=== PATIENT | female | born 1975 | race Caucasian/White ===

== ENCOUNTER → 2020-11-17 | Day surgery (SDC) | payer OTHER ==
[2020-11-17 16:01] VITALS: BP 131/91; TEMP 98.6
== END ==
LOC: CSHULT 12:05
PROVIDERS: ATTEND Internal Medicine Gastroenterology
DX: R18.8 Other ascites (principal)
CPT/HCPCS: 49083

== ENCOUNTER → 2020-11-21 | Day surgery (SDC) | payer OTHER ==
[~2020-11-21] MED LIST: Albumin 25% 100 ML ONE; Ondansetron PF 4 MG/2 ML Vial ONE; Sodium Bicarbonate 2.5 MEQ/5 ML VIAL ONE
[2020-11-21 14:33] VITALS: BP 133/77; TEMP 98
== END ==
LOC: CSHULT 12:35
PROVIDERS: ATTEND Internal Medicine Gastroenterology
DX: R18.8 Other ascites (principal)
CPT/HCPCS: 49083; J2405; P9047

== ENCOUNTER 2020-11-23 21:16 | Inpatient (IN) | payer OTHER ==
[2020-11-23 21:58] LABS: Hemoglobin 12.2 g/dL (12.0-15.5); Mean Corpuscular HGB CONC 33.7 g/dL (32.0-36.0); Mean Corpuscular Hemoglobin 30.8 pg (27.0-33.0); Mean Corpuscular Volume 91.4 fl (81.6-98.3); Platelet Count 70 10x3/uL (150-450); RBC Distribution Width 21.3 % (11.5-14.5); Red Blood Cell (RBC) Count 3.96 10x6/uL (3.90-5.03); White Blood Cell (WBC) Count 13.2 10x3/uL (3.5-10.5)
[2020-11-23 22:08] LABS: BHCG - Serum Negative (NEGATIVE); Pregs Control Background? CLEAR/WHITE (CLR/WHITE); Pregs Control Bar Appear? YES (CONTROL BAR)
[2020-11-23 22:14] LABS: ALT (SGPT) 51 U/L (8-55); AST (SGOT) 113 U/L (5-34); Acetaminophen Less than 6.0 mcg/mL (10.0-30.0); Alcohol Less than 10 mg/dL (Less than 10); Alkaline Phosphatase 273 U/L (40-110); Anion Gap 17 mmol/L (10-20); BUN (Urea Nitrogen) 25 mg/dL (7.0-18.7); Bilirubin, Total 4.5 mg/dL (0.2-1.2); Calc. Creatinine Clearance 0 mL/min (70-130); Calcium 8.4 mg/dL (7.8-10.44); Carbon Dioxide 21 mmol/L (22-29); Chloride 100 mmol/L (98-107); Globulin 3.5 g/dL (2.4-3.5); Glucose 110 mg/dL (70-105); Lipase 449 U/L (8-78); Potassium 4.1 mmol/L (3.5-5.1); Protein, Total 6.5 g/dL (6.0-8.3); Salicylate Less than 8.0 mg/dL (15.0-30.0); Sodium 134 mmol/L (136-145)
[2020-11-23 22:15] LABS: INR-International Normal Ratio 1.1; Prothrombin Time 11.9 sec (9.5-12.1)
[2020-11-23 22:26] LABS: Band 10 % (5-11); Lymphocytes 3 % (21-51); Reactive Lymphocytes 4 % (0-10)
[2020-11-23 22:27] LABS: Monocytes 8 % (0-10); Neutrophil 75 % (42-75)
[2020-11-23 22:29] LABS: Anisocytosis MODERATE=16-30 cells (100X) (0-5/hpf); Macrocytosis SLIGHT = 6-15 cells (100X) (0-5/hpf); Microcytosis SLIGHT = 6-15 cells (100X) (0-5/hpf); Poikilocytosis SLIGHT = 6-15 cells (100X) (0-5/hpf)
[2020-11-23 22:33] LABS: Large Platelets SLIGHT; Platelet Morphology Comment Appears Decreased
[2020-11-23 22:34] LABS: CKMB 2.4 ng/mL (0-6.6); Target Cells SLIGHT = 2-5 cells (100X) (0-1/hpf)
[2020-11-23 22:35] LABS: MDiff Complete? YES; Manual Diff?? YES
[2020-11-23] MEDS ORDERED: Cefepime 2 GM VIAL ONE (22:41)
[2020-11-23] MEDS ORDERED: diphenhydrAMINE 50 MG/ML VIAL ONE (22:56)
[2020-11-24] MEDS ORDERED: diphenhydrAMINE 50 MG/ML VIAL ONE ×3 (00:08→00:52)
[2020-11-24 01:15] LABS: Lactic Acid 2.4 mmol/L (0.5-2.2)
[2020-11-24] MEDS ORDERED: Acetaminophen 650 MG Suppository PR PRN (01:33)
[2020-11-24] MEDS ORDERED: Ondansetron PF 4 MG/2 ML Vial IVP PRN (01:33)
[2020-11-24] MEDS ORDERED: Dextrose 50% Abboject 50 ML SYRINGE SLOW IVP PRN (01:43)
[2020-11-24] MEDS ORDERED: Dextrose 5% in Water 1,000 ML IV PRN (01:43)
[2020-11-24] MEDS ORDERED: Dextrose 5 % And 0.9 % NaCl 1,000 ML IV SCH (01:45)
[2020-11-24] MEDS ORDERED: Albumin 25% 25 GM/100 ML BOT IVPB SCH (01:52)
[2020-11-24 02:05] LABS: Lactic Acid 3.6 mmol/L (0.5-2.2)
[2020-11-24] MEDS ORDERED: Dextrose 5% in Water 1,000 ML ONE (03:15)
[2020-11-24 03:32] VITALS: BMI 24.4
[2020-11-24 04:43] LABS: Lactic Acid 2.5 mmol/L (0.5-2.2)
[2020-11-24 04:49] LABS: ALT (SGPT) 49 U/L (8-55); AST (SGOT) 107 U/L (5-34); Albumin 2.8 g/dL (3.5-5.0); Alkaline Phosphatase 251 U/L (40-110); Anion Gap 20 mmol/L (10-20); BUN (Urea Nitrogen) 31 mg/dL (7.0-18.7); Bilirubin, Total 4.3 mg/dL (0.2-1.2); Calc. Creatinine Clearance 15 mL/min (70-130); Calcium 8.3 mg/dL (7.8-10.44); Carbon Dioxide 16 mmol/L (22-29); Chloride 102 mmol/L (98-107); Globulin 3.3 g/dL (2.4-3.5); Glucose 140 mg/dL (70-105); Lipase 372 U/L (8-78); Potassium 4.1 mmol/L (3.5-5.1); Protein, Total 6.1 g/dL (6.0-8.3); Sodium 134 mmol/L (136-145)
[2020-11-24 05:05] LABS: CKMB 2.7 ng/mL (0-6.6)
[2020-11-24 05:26] LABS: #Basophils 0.1 10x3/uL (0.0-0.2); #Eosinphils 0.1 10x3/uL (0.0-0.5); #Monocytes 0.9 10x3/uL (0.0-1.1); %Basophils 0.7 % (0.0-2.0); %Eosinophils 0.4 % (0.0-6.0); %Lymphocytes 3.1 % (18.0-47.0); %Monocytes 6.8 % (0.0-10.0); Hemoglobin 11.5 g/dL (12.0-15.5); Mean Corpuscular HGB CONC 33.3 g/dL (32.0-36.0); Mean Corpuscular Hemoglobin 30.4 pg (27.0-33.0); Mean Corpuscular Volume 91.3 fl (81.6-98.3); Platelet Count 81 10x3/uL (150-450); RBC Distribution Width 21.8 % (11.5-14.5); Red Blood Cell (RBC) Count 3.78 10x6/uL (3.90-5.03); White Blood Cell (WBC) Count 12.7 10x3/uL (3.5-10.5)
[2020-11-24] MEDS: Levothyroxine Sodium 75 MCG TAB PO SCH (07:30)
[2020-11-24] MEDS ORDERED: VITAMIN A 8000 UNIT PO SCH (09:00)
[2020-11-24] MEDS ORDERED: RIFAXIMIN 200 MG PO SCH (09:00)
[2020-11-24] MEDS ORDERED: Lidocaine 1% PF 5 ML VIAL ONE (09:46)
[2020-11-24] MEDS ORDERED: Sodium Bicarbonate 2.5 MEQ/5 ML VIAL ONE (09:47)
[2020-11-24] MEDS: Sevelamer Carbonate 800 MG TAB PO SCH ×3 (09:56→16:44)
[2020-11-24] MEDS: Cyanocobalamin (Vitamin B-12) 1,000 MCG TAB PO SCH (09:56)
[2020-11-24] MEDS: Ursodiol 300 MG CAP PO SCH ×2 (09:56→21:54)
[2020-11-24] MEDS: Folic Acid 1 MG TAB PO SCH (09:56)
[2020-11-24] MEDS: Pantoprazole 40 MG VIAL IVP SCH (09:56)
[2020-11-24] MEDS: Propranolol 10 MG TAB PER TUBE SCH ×2 (09:56→21:54)
[2020-11-24 12:08] LABS: Actual Bicarbonate (HCO3a) 16.5 mEq/L (22-28); Base Excess (BEa) -5.9 mEq/L (-2.0 to +3.0); CO2 Tension 23.8 mmHg (35.0-45.0); Calcium, Ionized (arterial) 1.09 mmol/L (1.12-1.30); Carboxyhemoglobin (COHb) 0.2 gm% (0.0-3.0); Hemoglobin (Hb) 10.7 g/dL (12.0-16.0); O2 Tension (PaO2), arterial 94.8 mmHg (80.0-100.0); Potassium - ABG Lab 3.8 mmol/L (3.70-5.30); Puncture Site LRA; pH, Arterial 7.46 (7.35-7.45)
[2020-11-24 13:11] LABS: SARS-CoV-2 PCR by NAA Not Detected (NotDetected)
[2020-11-24 16:48] LABS: BF Color Yellow; Body Fluid Source Ascites Body Fluid; Clarity Hazy (Clear); Tube # EDTA
[2020-11-24] MEDS: Cefepime 1 GM in Sodium Chloride 0.9% 100 ML IVPB SCH (21:53)
[2020-11-25] MEDS: Levothyroxine Sodium 75 MCG TAB PO SCH (05:28)
[2020-11-25 06:48] LABS: Mean Corpuscular HGB CONC 32.8 g/dL (32.0-36.0); Mean Corpuscular Hemoglobin 30.9 pg (27.0-33.0); Mean Corpuscular Volume 94.1 fl (81.6-98.3); Mean Platelet Volume 12.3 fl (7.4-10.4); Platelet Count 76 10x3/uL (150-450); RBC Distribution Width 21.8 % (11.5-14.5); Red Blood Cell (RBC) Count 3.56 10x6/uL (3.90-5.03); White Blood Cell (WBC) Count 13.7 10x3/uL (3.5-10.5)
[2020-11-25 07:06] LABS: ALT (SGPT) 46 U/L (8-55); AST (SGOT) 106 U/L (5-34); Albumin 2.8 g/dL (3.5-5.0); Alkaline Phosphatase 193 U/L (40-110); Anion Gap 19 mmol/L (10-20); BUN (Urea Nitrogen) 49 mg/dL (7.0-18.7); Bilirubin, Total 5.4 mg/dL (0.2-1.2); Calc. Creatinine Clearance 10 mL/min (70-130); Calcium 8.6 mg/dL (7.8-10.44); Carbon Dioxide 17 mmol/L (22-29); Chloride 107 mmol/L (98-107); Glucose 77 mg/dL (70-105); Potassium 4.1 mmol/L (3.5-5.1); Protein, Total 5.8 g/dL (6.0-8.3); Sodium 139 mmol/L (136-145)
[2020-11-25] MEDS ORDERED: Loratadine 10 MG TAB PO PRN (07:31)
[2020-11-25] MEDS ORDERED: Ondansetron ODT 4 MG TAB PO PRN (07:31)
[2020-11-25] MEDS ORDERED: Sodium Chloride 0.65% Nasal 44 ML BOT EA NARE PRN (07:31)
[2020-11-25] MEDS ORDERED: Cepastat Lozenges 1 LOZ PO PRN (07:31)
[2020-11-25] MEDS ORDERED: Acetaminophen 500 MG TAB PO PRN (07:31)
[2020-11-25] MEDS ORDERED: hydrALAZINE 20 MG/ML VIAL SLOW IVP PRN (07:31)
[2020-11-25] MEDS ORDERED: Calcium Carbonate 500 MG ChewTAB PO PRN (07:31)
[2020-11-25] MEDS ORDERED: Senokot S 8.6-50 MG TAB PO PRN (07:31)
[2020-11-25] MEDS ORDERED: HYDROcodone/Acetaminophen 5/325 mg Tablet PO PRN (07:31)
[2020-11-25] MEDS ORDERED: GUAIFENESIN SF SOLN 200 MG/10 ML UDCUP PO PRN (07:31)
[2020-11-25] MEDS ORDERED: Midodrine HCl 5 MG TAB PO SCH (09:00)
[2020-11-25] MEDS: Pantoprazole 40 MG VIAL IVP SCH (09:33)
[2020-11-25] MEDS: Ferrous Sulfate 325 MG TAB PO SCH (09:33)
[2020-11-25] MEDS: Folic Acid 1 MG TAB PO SCH (09:34)
[2020-11-25] MEDS: Propranolol 10 MG TAB PER TUBE SCH ×2 (09:34→21:23)
[2020-11-25] MEDS: Ursodiol 300 MG CAP PO SCH ×2 (09:34→21:24)
[2020-11-25] MEDS: Sevelamer Carbonate 800 MG TAB PO SCH ×3 (09:34→18:10)
[2020-11-25] MEDS: Cyanocobalamin (Vitamin B-12) 1,000 MCG TAB PO SCH (09:34)
[2020-11-25] MEDS: hydrOXYzine 25 MG TAB PO PRN (18:10)
[2020-11-25] MEDS: Cefepime 1 GM in Sodium Chloride 0.9% 100 ML IVPB SCH (21:22)
[2020-11-25] MEDS ORDERED: diphenhydrAMINE 25 MG CAP PO PRN (21:34)
[2020-11-26] MEDS ORDERED: diphenhydrAMINE 12.5 MG/5 ML UDCUP PO PRN (00:15)
[2020-11-26] MEDS: Cholestyramine/Aspartame 4 gm Packet PO SCH ×2 (01:49→10:00)
[2020-11-26 05:47] LABS: Anion Gap 19 mmol/L (10-20); Globulin 2.8 g/dL (2.4-3.5)
[2020-11-26 05:50] LABS: #Basophils 0.1 10x3/uL (0.0-0.2); #Eosinphils 0.3 10x3/uL (0.0-0.5); #Monocytes 0.8 10x3/uL (0.0-1.1); #Neutrophils 9.5 10x3/uL (1.5-8.4); %Basophils 0.9 % (0.0-2.0); %Eosinophils 2.3 % (0.0-6.0); %Lymphocytes 5.3 % (18.0-47.0); %Monocytes 6.7 % (0.0-10.0); Hemoglobin 10.5 g/dL (12.0-15.5); Mean Corpuscular HGB CONC 33.1 g/dL (32.0-36.0); Mean Corpuscular Hemoglobin 31.4 pg (27.0-33.0); Mean Corpuscular Volume 94.9 fl (81.6-98.3); Platelet Count 88 10x3/uL (150-450); RBC Distribution Width 21.3 % (11.5-14.5); Red Blood Cell (RBC) Count 3.34 10x6/uL (3.90-5.03); White Blood Cell (WBC) Count 11.9 10x3/uL (3.5-10.5)
[2020-11-26 05:51] LABS: ALT (SGPT) 43 U/L (8-55); AST (SGOT) 82 U/L (5-34); Albumin 2.4 g/dL (3.5-5.0); Alkaline Phosphatase 186 U/L (40-110); BUN (Urea Nitrogen) 61 mg/dL (7.0-18.7); Bilirubin, Total 4.9 mg/dL (0.2-1.2); Calc. Creatinine Clearance 9 mL/min (70-130); Calcium 7.3 mg/dL (7.8-10.44); Carbon Dioxide 11 mmol/L (22-29); Chloride 104 mmol/L (98-107); Glucose 118 mg/dL (70-105); Potassium 5.1 mmol/L (3.5-5.1); Protein, Total 5.2 g/dL (6.0-8.3); Sodium 129 mmol/L (136-145)
[2020-11-26] MEDS: Levothyroxine Sodium 75 MCG TAB PO SCH (07:02)
[2020-11-26] MEDS: hydrOXYzine 25 MG TAB PO PRN (07:02)
[2020-11-26] MEDS: Sevelamer Carbonate 800 MG TAB PO SCH ×3 (08:00→18:03)
[2020-11-26] MEDS: Ursodiol 300 MG CAP PO SCH (09:00)
[2020-11-26] MEDS: Propranolol 10 MG TAB PER TUBE SCH (09:00)
[2020-11-26] MEDS: Folic Acid 1 MG TAB PO SCH (15:43)
[2020-11-26] MEDS: Ferrous Sulfate 325 MG TAB PO SCH (15:43)
[2020-11-26] MEDS: Cyanocobalamin (Vitamin B-12) 1,000 MCG TAB PO SCH (15:43)
[2020-11-26 18:22] VITALS: BP 109/76; TEMP 97.7
== END 2020-11-26 20:00 | disposition home or self-care (01) | DRG 441 ==
LOC: CSHERS 21:16 → CSHTELE 11-24 01:33 → UNDOADMIN 11-24 02:34
PROVIDERS: ADMIT Student in an Organized Health Care Education/Training Program; ATTEND Internal Medicine
PROC: 0W9G3ZZ Drainage of Peritoneal Cavity, Percutaneous Approach (ICD-10-PCS; principal; 2020-11-24)
PROC: 5A1D70Z Performance of Urinary Filtration, Intermittent, Less than 6 Hours Per Day (ICD-10-PCS; 2020-11-26)
DX: K72.00 Acute and subacute hepatic failure without coma (principal); K76.7 Hepatorenal syndrome; N18.6 End stage renal disease; E87.2 Acidosis; E72.20 Disorder of urea cycle metabolism, unspecified; R18.8 Other ascites; I12.0 Hypertensive chronic kidney disease with stage 5 chronic kidney disease or end stage renal disease; K75.4 Autoimmune hepatitis; Z20.822 Contact with and (suspected) exposure to COVID-19; D63.1 Anemia in chronic kidney disease; K74.69 Other cirrhosis of liver; D69.6 Thrombocytopenia, unspecified; R77.8 Other specified abnormalities of plasma proteins; E83.39 Other disorders of phosphorus metabolism; Z91.14 Patient's other noncompliance with medication regimen; Z99.2 Dependence on renal dialysis; I95.9 Hypotension, unspecified; Z79.891 Long term (current) use of opiate analgesic; Z79.899 Other long term (current) drug therapy; Z78.1 Physical restraint status
CPT/HCPCS: 36415; 36416; 36600; 49083; 70450; 71045; 80053; 80307; 82042; 82140; 82553; 82805; 83605; 83690; 84484; 84703; 85025; 85027; 85610; 87635; 89051; 90935; 93005; 94760; 96365; 96367; 96375; 96376; C9113; G0257; J0692; J1200; J3370; J3490; J7042; J7070; P9047; Q0163; U0003; U0005

== ENCOUNTER 2020-11-28 12:54 | Day surgery (SDC) | payer OTHER ==
[2020-11-28] MEDS ORDERED: Lidocaine 1% PF 5 ML VIAL ONE (13:23)
[2020-11-28] MEDS ORDERED: Albumin 25% 100 ML ONE (13:23)
[2020-11-28] MEDS ORDERED: Ondansetron PF 4 MG/2 ML Vial ONE (13:23)
[2020-11-28] MEDS ORDERED: Sodium Bicarbonate 2.5 MEQ/5 ML VIAL ONE (13:23)
[2020-11-28 14:30] VITALS: BMI 18.5
[2020-11-28 14:36] VITALS: BP 127/92; TEMP 97.9
[2020-11-28] MEDS ORDERED: Prevnar 13-Val Conj/PF 0.5 ML SYRINGE IM ONE (14:45)
[2020-11-28] MEDS ORDERED: FLU VACC QS2020-21(6MOS UP)/PF 60 MCG/0.5 ML SYRINGE IM ONE (14:45)
[2020-11-28 16:14] LABS: Body Fluid Source Ascites Body Fluid; Tube # 1
[2020-11-28 16:15] LABS: BF Color Yellow; Clarity Cloudy/Turbid (Clear)
[2020-11-28 20:52] LABS: Fluid, Glucose 129 mg/dL (Not Available); Fluid, Protein Less than 1.0 g/dL (Not Available)
== END 2020-11-28 14:30 | disposition home or self-care (01) ==
LOC: CSHULT 12:54
PROVIDERS: ATTEND Internal Medicine Gastroenterology
DX: R18.8 Other ascites (principal)
CPT/HCPCS: 49083; 82945; 84157; 89051; 90471; 90662; G0008; J2405; P9047

== ENCOUNTER → 2020-12-01 | Day surgery (SDC) | payer OTHER ==
[~2020-12-01] MED LIST changes: +Lidocaine 1% PF 5 ML VIAL ONE
[2020-12-01 11:09] LABS: Hemoglobin 12.3 g/dL (12.0-15.5); Mean Corpuscular HGB CONC 33.8 g/dL (32.0-36.0); Mean Corpuscular Hemoglobin 30.9 pg (27.0-33.0); Mean Corpuscular Volume 91.5 fl (81.6-98.3); Platelet Count 103 10x3/uL (150-450); RBC Distribution Width 21.8 % (11.5-14.5); Red Blood Cell (RBC) Count 3.98 10x6/uL (3.90-5.03); White Blood Cell (WBC) Count 15.2 10x3/uL (3.5-10.5)
[2020-12-01 11:11] LABS: MDiff Complete? YES
[2020-12-01 11:18] LABS: ALT (SGPT) 67 U/L (8-55); AST (SGOT) 127 U/L (5-34); Albumin 2.9 g/dL (3.5-5.0); Alkaline Phosphatase 250 U/L (40-110); Anion Gap 18 mmol/L (10-20); BUN (Urea Nitrogen) 32 mg/dL (7.0-18.7); Bilirubin, Total 5.4 mg/dL (0.2-1.2); Calc. Creatinine Clearance 0 mL/min (70-130); Calcium 8.6 mg/dL (7.8-10.44); Carbon Dioxide 19 mmol/L (22-29); Chloride 98 mmol/L (98-107); Globulin 3.6 g/dL (2.4-3.5); Glucose 102 mg/dL (70-105); Potassium 5.6 mmol/L (3.5-5.1); Protein, Total 6.5 g/dL (6.0-8.3); Sodium 129 mmol/L (136-145)
[2020-12-01 11:32] LABS: Band 1 % (5-11); Eosinophils 1 % (0-10); Lymphocytes 15 % (21-51); Monocytes 9 % (0-10); Neutrophil 74 % (42-75)
[2020-12-01 11:33] LABS: Platelet Morphology Comment Appears Decreased; Target Cells SLIGHT = 2-5 cells (100X) (0-1/hpf)
== END ==
LOC: CSHULT 10:16
PROVIDERS: ATTEND Internal Medicine Gastroenterology
DX: R18.8 Other ascites (principal)
CPT/HCPCS: 49083; 80053; 85025; J2405; P9047

== ENCOUNTER → 2020-12-05 | Day surgery (SDC) | payer OTHER ==
[2020-12-05 15:28] VITALS: BMI 28.3
== END ==
LOC: CSHULT 13:09
PROVIDERS: ATTEND Internal Medicine Gastroenterology
DX: R18.8 Other ascites (principal)
CPT/HCPCS: 49083; J2405; P9047

== ENCOUNTER → 2020-12-08 | Day surgery (SDC) | payer OTHER ==
[~2020-12-08] MED LIST changes: -Lidocaine 1% PF 5 ML VIAL ONE
[2020-12-08 13:11] VITALS: BMI 18.5
[2020-12-08 14:05] LABS: Hemoglobin 11.5 g/dL (12.0-15.5); Mean Corpuscular Hemoglobin 32.8 pg (27.0-33.0); Mean Corpuscular Volume 93.7 fl (81.6-98.3); Platelet Count 138 10x3/uL (150-450); RBC Distribution Width 23.9 % (11.5-14.5); Red Blood Cell (RBC) Count 3.51 10x6/uL (3.90-5.03)
[2020-12-08 14:10] VITALS: BP 106/71; TEMP 98
[2020-12-08 14:15] LABS: ALT (SGPT) 78 U/L (8-55); AST (SGOT) 138 U/L (5-34); Albumin 2.8 g/dL (3.5-5.0); Alkaline Phosphatase 303 U/L (40-110); Anion Gap 19 mmol/L (10-20); BUN (Urea Nitrogen) 35 mg/dL (7.0-18.7); Bilirubin, Total 6.8 mg/dL (0.2-1.2); Calc. Creatinine Clearance 9 mL/min (70-130); Calcium 8.4 mg/dL (7.8-10.44); Carbon Dioxide 21 mmol/L (22-29); Chloride 99 mmol/L (98-107); Globulin 3.8 g/dL (2.4-3.5); Glucose 94 mg/dL (70-105); Potassium 5.2 mmol/L (3.5-5.1); Protein, Total 6.6 g/dL (6.0-8.3); Sodium 134 mmol/L (136-145)
[2020-12-08 14:24] LABS: INR-International Normal Ratio 1.1; Prothrombin Time 11.7 sec (9.5-12.1)
[2020-12-08 14:27] LABS: Band 4 % (5-11); Eosinophils 2 % (0-10); Lymphocytes 8 % (21-51); Monocytes 3 % (0-10); Reactive Lymphocytes 1 % (0-10)
[2020-12-08 14:29] LABS: Neutrophil 82 % (42-75)
[2020-12-08 14:32] LABS: Anisocytosis SLIGHT = 6-15 cells (100X) (0-5/hpf); Macrocytosis SLIGHT = 6-15 cells (100X) (0-5/hpf); Microcytosis SLIGHT = 6-15 cells (100X) (0-5/hpf); Platelet Morphology Comment Appears Increased; Polychromasia SLIGHT = 2-3 cells (100X) (0-2/hpf); Target Cells MODERATE= 6-15 cells (100X) (0-1/hpf); Tear Drops SLIGHT = 2-5 cells (100X) (0-1/hpf)
== END ==
LOC: CSHULT 12:53
PROVIDERS: ATTEND Internal Medicine Gastroenterology
DX: R18.8 Other ascites (principal)
CPT/HCPCS: 49083; 80053; 85025; 85610; J2405; P9047

== ENCOUNTER 2020-12-12 13:06 | Day surgery (SDC) | payer OTHER ==
[2020-12-12 13:17] VITALS: BMI 18.5
[2020-12-12] MEDS ORDERED: Albumin 25% 100 ML ONE (13:25)
[2020-12-12] MEDS ORDERED: Sodium Bicarbonate 2.5 MEQ/5 ML VIAL ONE (13:26)
[2020-12-12] MEDS ORDERED: Ondansetron PF 4 MG/2 ML Vial ONE (13:26)
[2020-12-12] MEDS ORDERED: Sterile Water 0 ML ONE (13:26)
[2020-12-12 13:56] VITALS: BP 114/68; TEMP 97.8
== END 2020-12-12 14:45 | disposition home or self-care (01) ==
LOC: CSHULT 13:06
PROVIDERS: ATTEND Internal Medicine Gastroenterology
DX: R18.8 Other ascites (principal)
CPT/HCPCS: 49083; J2405; P9047

== ENCOUNTER 2020-12-14 16:08 | Inpatient (IN) | payer OTHER ==
[2020-12-14 16:57] LABS: Hemoglobin 11.7 g/dL (12.0-15.5); Mean Corpuscular HGB CONC 34.7 g/dL (32.0-36.0); Mean Corpuscular Hemoglobin 32.3 pg (27.0-33.0); Mean Corpuscular Volume 93.1 fl (81.6-98.3); Mean Platelet Volume 11.3 fl (7.4-10.4); Platelet Count 130 10x3/uL (150-450); RBC Distribution Width 22.5 % (11.5-14.5); Red Blood Cell (RBC) Count 3.62 10x6/uL (3.90-5.03); White Blood Cell (WBC) Count 11.6 10x3/uL (3.5-10.5)
[2020-12-14 17:05] LABS: ALT (SGPT) 52 U/L (8-55); AST (SGOT) 93 U/L (5-34); Albumin 2.8 g/dL (3.5-5.0); Alkaline Phosphatase 256 U/L (40-110); Anion Gap 27 mmol/L (10-20); BUN (Urea Nitrogen) 39 mg/dL (7.0-18.7); Bilirubin, Total 7.2 mg/dL (0.2-1.2); Calc. Creatinine Clearance 0 mL/min (70-130); Calcium 8.8 mg/dL (7.8-10.44); Carbon Dioxide 19 mmol/L (22-29); Chloride 96 mmol/L (98-107); Globulin 2.9 g/dL (2.4-3.5); Glucose 102 mg/dL (70-105); Potassium 5.2 mmol/L (3.5-5.1); Protein, Total 5.7 g/dL (6.0-8.3); Sodium 137 mmol/L (136-145)
[2020-12-14 17:13] LABS: INR-International Normal Ratio 1.2; PTT 26.7 sec (22.0-33.0)
[2020-12-14 17:19] LABS: #Basophils 0.1 10x3/uL (0.0-0.2); #Eosinphils 0.2 10x3/uL (0.0-0.5); #Monocytes 0.9 10x3/uL (0.0-1.1); #Neutrophils 9.5 10x3/uL (1.5-8.4); %Eosinophils 1.4 % (0.0-6.0); %Lymphocytes 4.8 % (18.0-47.0); %Monocytes 7.5 % (0.0-10.0); %Neutrophils 81.7 % (40.0-75.0)
[2020-12-14 17:21] LABS: Platelet Morphology Comment Appears Decreased
[2020-12-14 17:23] LABS: Anisocytosis SLIGHT = 6-15 cells (100X) (0-5/hpf); Basophilic Stippling SLIGHT = 1-2 cells (100X) (None Seen); Macrocytosis SLIGHT = 6-15 cells (100X) (0-5/hpf); Target Cells MODERATE= 6-15 cells (100X) (0-1/hpf)
[2020-12-14 17:24] LABS: Polychromasia SLIGHT = 2-3 cells (100X) (0-2/hpf)
[2020-12-14] MEDS ORDERED: Lidocaine Viscous Sol 2% 15 ml UD Cup ONE (18:23)
[2020-12-14 18:39] LABS: Magnesium 2.4 mg/dL (1.6-2.6); Phosphorus 8.9 mg/dL (2.3-4.7)
[2020-12-14] MEDS ORDERED: Rifaximin 550 MG TAB PO SCH (18:45)
[2020-12-14] MEDS ORDERED: Octreotide Acetate 1,250 MCG in Sodium Chloride 0.9% 250 ML 250 ML IVPB SCH (19:45)
[2020-12-14] MEDS ORDERED: Octreotide Acetate 50 MCG/ML AMP SLOW IVP SCH (21:00)
[2020-12-14] MEDS ORDERED: Pantoprazole 40 MG VIAL IVP SCH (21:00)
[2020-12-14] MEDS ORDERED: Pantoprazole 40 MG VIAL ONE (22:03)
[2020-12-14] MEDS ORDERED: Octreotide Acetate 100 MCG/ML VIAL ONE (22:22)
[2020-12-14] MEDS ORDERED: Octreotide Acetate 50 MCG/ML AMP ONE (22:23)
[2020-12-14] MEDS: cefTRIAXone\\ROCEPHIN 1 GM in Sodium Chloride 0.9% 100 ML IVPB SCH (22:56)
[2020-12-14] MEDS: Pantoprazole 80 MG in Sodium Chloride 0.9% 100 ML IVP SCH (23:23)
[2020-12-15] MEDS: Octreotide Acetate 1,250 MCG in Sodium Chloride 0.9% 250 ML 250 ML IVPB SCH (00:14)
[2020-12-15 00:50] VITALS: BMI 18.5
[2020-12-15 04:42] LABS: #Basophils 0.1 10x3/uL (0.0-0.2); #Eosinphils 0.1 10x3/uL (0.0-0.5); %Basophils 0.9 % (0.0-2.0); %Eosinophils 0.7 % (0.0-6.0); %Lymphocytes 7.5 % (18.0-47.0); %Monocytes 8.3 % (0.0-10.0); Hemoglobin 11.3 g/dL (12.0-15.5); Mean Corpuscular HGB CONC 34.8 g/dL (32.0-36.0); Mean Corpuscular Hemoglobin 32.4 pg (27.0-33.0); Mean Corpuscular Volume 93.1 fl (81.6-98.3); Mean Platelet Volume 11.4 fl (7.4-10.4); Platelet Count 129 10x3/uL (150-450); RBC Distribution Width 22.6 % (11.5-14.5); Red Blood Cell (RBC) Count 3.49 10x6/uL (3.90-5.03); White Blood Cell (WBC) Count 12.5 10x3/uL (3.5-10.5)
[2020-12-15 04:59] LABS: Anion Gap 29 mmol/L (10-20); BUN (Urea Nitrogen) 44 mg/dL (7.0-18.7); Calc. Creatinine Clearance 7 mL/min (70-130); Calcium 9.4 mg/dL (7.8-10.44); Carbon Dioxide 16 mmol/L (22-29); Chloride 96 mmol/L (98-107); Glucose 77 mg/dL (70-105); Potassium 5.9 mmol/L (3.5-5.1); Sodium 135 mmol/L (136-145)
[2020-12-15] MEDS ORDERED: Insulin Regular 300 UNITS/3 ML VIAL IVP SCH (06:00)
[2020-12-15] MEDS ORDERED: Dextrose 50% Abboject 50 ML SYRINGE SLOW IVP SCH (06:00)
[2020-12-15] MEDS ORDERED: Calcium Gluconate 4.6 MEQ in Sodium Chloride 0.9% 100 ML IVPB SCH (06:30)
[2020-12-15] MEDS: Rifaximin 550 MG TAB PER TUBE SCH ×2 (08:52→20:37)
[2020-12-15 09:17] LABS: ALT (SGPT) 48 U/L (8-55); AST (SGOT) 96 U/L (5-34); Albumin 2.6 g/dL (3.5-5.0); Alkaline Phosphatase 236 U/L (40-110); Bilirubin, Direct 5.6 mg/dL (0.1-0.3); Bilirubin, Total 7.4 mg/dL (0.2-1.2); Protein, Total 5.8 g/dL (6.0-8.3)
[2020-12-15] MEDS: Pantoprazole 80 MG in Sodium Chloride 0.9% 100 ML IVP SCH ×2 (09:23→20:37)
[2020-12-15 10:35] LABS: ALT (SGPT) 43 U/L (8-55); AST (SGOT) 86 U/L (5-34); Albumin 2.4 g/dL (3.5-5.0); Alkaline Phosphatase 219 U/L (40-110); Anion Gap 27 mmol/L (10-20); BUN (Urea Nitrogen) 47 mg/dL (7.0-18.7); Bilirubin, Total 7.6 mg/dL (0.2-1.2); Calc. Creatinine Clearance 6 mL/min (70-130); Calcium 9.4 mg/dL (7.8-10.44); Carbon Dioxide 18 mmol/L (22-29); Chloride 95 mmol/L (98-107); Glucose 97 mg/dL (70-105); Potassium 4.6 mmol/L (3.5-5.1); Protein, Total 5.4 g/dL (6.0-8.3); Sodium 135 mmol/L (136-145)
[2020-12-15] MEDS: Ondansetron PF 4 MG/2 ML Vial IVP PRN (12:37)
[2020-12-15] MEDS: Sevelamer Carbonate 800 MG TAB PO SCH ×2 (15:10→16:40)
[2020-12-15] MEDS: cefTRIAXone\\ROCEPHIN 1 GM in Sodium Chloride 0.9% 100 ML IVPB SCH (20:38)
[2020-12-16] MEDS ORDERED: diphenhydrAMINE 25 MG CAP PO PRN (01:18)
[2020-12-16] MEDS: Ondansetron PF 4 MG/2 ML Vial IVP PRN ×2 (01:49→09:10)
[2020-12-16] MEDS: Octreotide Acetate 1,250 MCG in Sodium Chloride 0.9% 250 ML 250 ML IVPB SCH (05:31)
[2020-12-16 07:02] LABS: Hemoglobin 10.4 g/dL (12.0-15.5); Mean Corpuscular HGB CONC 33.9 g/dL (32.0-36.0); Mean Corpuscular Hemoglobin 32.3 pg (27.0-33.0); Mean Corpuscular Volume 95.3 fl (81.6-98.3); Mean Platelet Volume 12.3 fl (7.4-10.4); Platelet Count 109 10x3/uL (150-450); RBC Distribution Width 21.7 % (11.5-14.5); Red Blood Cell (RBC) Count 3.22 10x6/uL (3.90-5.03); White Blood Cell (WBC) Count 11.4 10x3/uL (3.5-10.5)
[2020-12-16 07:32] LABS: Anion Gap 20 mmol/L (10-20)
[2020-12-16 07:45] LABS: Albumin 2.2 g/dL (3.5-5.0); BUN (Urea Nitrogen) 33 mg/dL (7.0-18.7); BUN/Creatinine Ratio 5.53; Calc. Creatinine Clearance 9 mL/min (70-130); Calcium 7.8 mg/dL (7.8-10.44); Carbon Dioxide 19 mmol/L (22-29); Chloride 99 mmol/L (98-107); Glucose 112 mg/dL (70-105); Phosphorus 6.4 mg/dL (2.3-4.7); Potassium 5.1 mmol/L (3.5-5.1); Sodium 133 mmol/L (136-145)
[2020-12-16 08:48] LABS: SARS-CoV-2 NAA Rapid Test Not Detected (NotDetected)
[2020-12-16] MEDS ORDERED: PROPOFOL 40 ML ONE (09:34)
[2020-12-16] MEDS ORDERED: Lidocaine 1% PF 5 ML VIAL ONE ×2 (09:34→13:52)
[2020-12-16] MEDS: Sevelamer Carbonate 800 MG TAB PO SCH ×3 (11:08→17:21)
[2020-12-16] MEDS: Rifaximin 550 MG TAB PER TUBE SCH ×2 (12:51→21:30)
[2020-12-16] MEDS ORDERED: Sodium Bicarbonate 2.5 MEQ/5 ML VIAL ONE (13:52)
[2020-12-16] MEDS: Morphine 2 MG/ML VIAL SLOW IVP PRN ×2 (13:59→21:30)
[2020-12-16] MEDS ORDERED: Ondansetron PF 4 MG/2 ML Vial ONE (14:40)
[2020-12-16] MEDS: cefTRIAXone\\ROCEPHIN 1 GM in Sodium Chloride 0.9% 100 ML IVPB SCH (21:30)
[2020-12-17] MEDS: Sevelamer Carbonate 800 MG TAB PO SCH ×3 (09:07→16:59)
[2020-12-17] MEDS: Rifaximin 550 MG TAB PER TUBE SCH ×2 (09:07→20:51)
[2020-12-17] MEDS: Morphine 2 MG/ML VIAL SLOW IVP PRN ×2 (11:00→19:12)
[2020-12-17] MEDS ORDERED: OCTREOTIDE ACETATE IVPB SCH (20:00)
[2020-12-17] MEDS ORDERED: SODIUM CHLORIDE 0.9% IVPB SCH (20:00)
[2020-12-17] MEDS: cefTRIAXone\\ROCEPHIN 1 GM in Sodium Chloride 0.9% 100 ML IVPB SCH (20:58)
[2020-12-17] MEDS ORDERED: Octreotide Acetate 1,250 MCG in Sodium Chloride 0.9% 250 ML 250 ML IVPB SCH (21:00)
[2020-12-18] MEDS: Morphine 2 MG/ML VIAL SLOW IVP PRN ×2 (00:43→08:50)
[2020-12-18] MEDS: Rifaximin 550 MG TAB PER TUBE SCH (08:50)
[2020-12-18] MEDS: Sevelamer Carbonate 800 MG TAB PO SCH (08:50)
[2020-12-18 09:51] VITALS: BP 91/64; TEMP 98.2
== END 2020-12-18 13:22 | disposition home or self-care (01) | DRG 368 ==
LOC: CSHERS 16:08 → CSHTELE 20:51
PROVIDERS: ADMIT Family Medicine; ATTEND Hospitalist
PROC: 5A1D70Z Performance of Urinary Filtration, Intermittent, Less than 6 Hours Per Day (ICD-10-PCS; 2020-12-15)
PROC: 06L38CZ Occlusion of Esophageal Vein with Extraluminal Device, Via Natural or Artificial Opening Endoscopic (ICD-10-PCS; principal; 2020-12-16)
PROC: 0W9G3ZZ Drainage of Peritoneal Cavity, Percutaneous Approach (ICD-10-PCS; 2020-12-16)
PROC: 5A1D70Z Performance of Urinary Filtration, Intermittent, Less than 6 Hours Per Day (ICD-10-PCS; 2020-12-17)
DX: I85.11 Secondary esophageal varices with bleeding (principal); N18.6 End stage renal disease; K76.7 Hepatorenal syndrome; K72.00 Acute and subacute hepatic failure without coma; K76.6 Portal hypertension; R18.8 Other ascites; E87.2 Acidosis; K74.60 Unspecified cirrhosis of liver; K31.89 Other diseases of stomach and duodenum; D63.8 Anemia in other chronic diseases classified elsewhere; K75.4 Autoimmune hepatitis; Z99.2 Dependence on renal dialysis; E03.9 Hypothyroidism, unspecified; Z87.891 Personal history of nicotine dependence; E87.5 Hyperkalemia; E83.39 Other disorders of phosphorus metabolism; D69.6 Thrombocytopenia, unspecified; Z20.822 Contact with and (suspected) exposure to COVID-19
CPT/HCPCS: 36415; 36416; 49083; 71045; 76705; 80048; 80053; 80069; 80076; 82140; 83735; 84100; 84443; 85025; 85027; 85610; 85730; 86850; 86900; 86901; 90935; 93005; C9113; G0257; J0696; J1815; J2001; J2270; J2354; J2405; J2704; J3490; J7050; Q0163; U0002

== ENCOUNTER 2020-12-19 13:15 | Day surgery (SDC) | payer OTHER ==
[2020-12-19] MEDS ORDERED: Albumin 25% 100 ML ONE (13:28)
[2020-12-19] MEDS ORDERED: Lidocaine 1% PF 5 ML VIAL ONE (13:29)
[2020-12-19] MEDS ORDERED: Ondansetron PF 4 MG/2 ML Vial ONE (13:29)
[2020-12-19] MEDS ORDERED: Sodium Bicarbonate 2.5 MEQ/5 ML VIAL ONE (13:29)
[2020-12-19 13:59] VITALS: BMI 18.5
[2020-12-19 14:06] VITALS: BP 116/84; TEMP 97
[2020-12-19 15:30] LABS: ALT (SGPT) 49 U/L (8-55); AST (SGOT) 108 U/L (5-34); Albumin 2.9 g/dL (3.5-5.0); Alkaline Phosphatase 223 U/L (40-110); Anion Gap 20 mmol/L (10-20); BUN (Urea Nitrogen) 58 mg/dL (7.0-18.7); Bilirubin, Direct 5.2 mg/dL (0.1-0.3); Bilirubin, Total 6.4 mg/dL (0.2-1.2); Calc. Creatinine Clearance 6 mL/min (70-130); Calcium 8.2 mg/dL (7.8-10.44); Carbon Dioxide 18 mmol/L (22-29); Chloride 95 mmol/L (98-107); Globulin 3.1 g/dL (2.4-3.5); Glucose 88 mg/dL (70-105); Potassium 4.7 mmol/L (3.5-5.1); Sodium 128 mmol/L (136-145)
[2020-12-19 15:43] LABS: INR-International Normal Ratio 1.2; PTT 32.5 sec (22.0-33.0); Prothrombin Time 13.5 sec (9.5-12.1)
== END 2020-12-19 15:25 | disposition home or self-care (01) ==
LOC: CSHULT 13:15
PROVIDERS: ATTEND Internal Medicine Gastroenterology
DX: R18.8 Other ascites (principal)
CPT/HCPCS: 49083; 80053; 80076; 85610; 85730; J2405; P9047

== ENCOUNTER → 2020-12-22 | Day surgery (SDC) | payer OTHER ==
[~2020-12-22] MED LIST changes: +Lidocaine 1% PF 5 ML VIAL ONE
== END ==
LOC: CSHULT 12:52
PROVIDERS: ATTEND Internal Medicine Gastroenterology
DX: R18.8 Other ascites (principal)
CPT/HCPCS: 49083; J2405; P9047

== ENCOUNTER → 2020-12-26 | Day surgery (SDC) | payer OTHER ==
[~2020-12-26] MED LIST changes: -Lidocaine 1% PF 5 ML VIAL ONE
[2020-12-26 15:01] LABS: INR-International Normal Ratio 1.1; Prothrombin Time 12.1 sec (9.5-12.1)
[2020-12-26 15:31] VITALS: BMI 18.5
[2020-12-26 16:18] LABS: ALT (SGPT) 94 U/L (8-55); AST (SGOT) 293 U/L (5-34); Albumin 2.6 g/dL (3.5-5.0); Alkaline Phosphatase 301 U/L (40-110); Anion Gap 27 mmol/L (10-20); BUN (Urea Nitrogen) 61 mg/dL (7.0-18.7); Bilirubin, Total 7.6 mg/dL (0.2-1.2); Calc. Creatinine Clearance 6 mL/min (70-130); Calcium 9.9 mg/dL (7.8-10.44); Carbon Dioxide 14 mmol/L (22-29); Chloride 96 mmol/L (98-107); Globulin 4.1 g/dL (2.4-3.5); Glucose 88 mg/dL (70-105); Protein, Total 6.7 g/dL (6.0-8.3); Sodium 132 mmol/L (136-145)
== END ==
LOC: CSHULT 13:04
PROVIDERS: ATTEND Internal Medicine Gastroenterology
DX: R18.8 Other ascites (principal)
CPT/HCPCS: 49083; 80053; 85610; J2405; P9047

== ENCOUNTER 2020-12-29 12:51 | Day surgery (SDC) | payer OTHER ==
[2020-12-29] MEDS ORDERED: Ondansetron PF 4 MG/2 ML Vial ONE (12:58)
[2020-12-29] MEDS ORDERED: Albumin 25% 100 ML ONE (12:58)
[2020-12-29] MEDS ORDERED: Sodium Bicarbonate 2.5 MEQ/5 ML VIAL ONE (12:59)
[2020-12-29 13:38] VITALS: BP 103/72; TEMP 97.7
== END 2020-12-29 14:30 | disposition home or self-care (01) ==
LOC: CSHULT 12:51
PROVIDERS: ATTEND Internal Medicine Gastroenterology
DX: R18.8 Other ascites (principal)
CPT/HCPCS: 49083; J2405; P9047

== ENCOUNTER → 2021-01-02 | Day surgery (SDC) | payer OTHER ==
[2021-01-02 14:09] LABS: INR-International Normal Ratio 1.2; Prothrombin Time 12.8 sec (9.5-12.1)
[2021-01-02 14:15] LABS: ALT (SGPT) 69 U/L (8-55); AST (SGOT) 174 U/L (5-34); Albumin 2.6 g/dL (3.5-5.0); Alkaline Phosphatase 330 U/L (40-110); Anion Gap 26 mmol/L (10-20); BUN (Urea Nitrogen) 51 mg/dL (7.0-18.7); Bilirubin, Total 7.1 mg/dL (0.2-1.2); Calc. Creatinine Clearance 6 mL/min (70-130); Calcium 8.2 mg/dL (7.8-10.44); Carbon Dioxide 15 mmol/L (22-29); Chloride 96 mmol/L (98-107); Globulin 3.6 g/dL (2.4-3.5); Glucose 85 mg/dL (70-105); Potassium 4.6 mmol/L (3.5-5.1); Protein, Total 6.2 g/dL (6.0-8.3); Sodium 132 mmol/L (136-145)
== END ==
LOC: CSHULT 13:07
PROVIDERS: ATTEND Internal Medicine Gastroenterology
DX: R18.8 Other ascites (principal)
CPT/HCPCS: 49083; 80053; 85610; J2405; P9047

== ENCOUNTER → 2021-01-05 | Day surgery (SDC) | payer OTHER ==
[2021-01-05 13:35] LABS: INR-International Normal Ratio 1.1; Prothrombin Time 12.2 sec (9.5-12.1)
[2021-01-05 13:38] LABS: ALT (SGPT) 63 U/L (8-55); AST (SGOT) 194 U/L (5-34); Albumin 2.5 g/dL (3.5-5.0); Alkaline Phosphatase 306 U/L (40-110); Anion Gap 20 mmol/L (10-20); BUN (Urea Nitrogen) 26 mg/dL (7.0-18.7); Bilirubin, Total 6.8 mg/dL (0.2-1.2); Calc. Creatinine Clearance 9 mL/min (70-130); Calcium 7.9 mg/dL (7.8-10.44); Carbon Dioxide 20 mmol/L (22-29); Chloride 97 mmol/L (98-107); Globulin 3.3 g/dL (2.4-3.5); Glucose 115 mg/dL (70-105); Potassium 3.3 mmol/L (3.5-5.1); Protein, Total 5.8 g/dL (6.0-8.3); Sodium 134 mmol/L (136-145)
== END ==
LOC: CSHULT 12:53
PROVIDERS: ATTEND Internal Medicine Gastroenterology
DX: R18.8 Other ascites (principal)
CPT/HCPCS: 49083; 80053; 85610; J2405; P9047

== ENCOUNTER → 2021-01-09 | Day surgery (SDC) | payer OTHER ==
[~2021-01-09] MED LIST changes: +Lidocaine 1% PF 5 ML VIAL ONE
[2021-01-09 15:02] VITALS: BMI 18.5
[2021-01-09 15:06] VITALS: BP 101/68; TEMP 97.8
[2021-01-09 15:20] LABS: INR-International Normal Ratio 1.2; Prothrombin Time 13.3 sec (9.5-12.1)
[2021-01-09 16:02] LABS: ALT (SGPT) 69 U/L (8-55); AST (SGOT) 217 U/L (5-34); Albumin 2.6 g/dL (3.5-5.0); Alkaline Phosphatase 422 U/L (40-110); Anion Gap 25 mmol/L (10-20); BUN (Urea Nitrogen) 44 mg/dL (7.0-18.7); Bilirubin, Direct 5.2 mg/dL (0.1-0.3); Bilirubin, Total 7.5 mg/dL (0.2-1.2); Calc. Creatinine Clearance 6 mL/min (70-130); Carbon Dioxide 14 mmol/L (22-29); Chloride 94 mmol/L (98-107); Globulin 4.3 g/dL (2.4-3.5); Glucose 111 mg/dL (70-105); Protein, Total 6.9 g/dL (6.0-8.3); Sodium 129 mmol/L (136-145)
== END ==
LOC: CSHULT 13:02
PROVIDERS: ATTEND Internal Medicine Gastroenterology
DX: R18.8 Other ascites (principal)
CPT/HCPCS: 49083; 80053; 80076; 85610; J2405; P9047

== ENCOUNTER 2021-01-12 13:01 | Day surgery (SDC) | payer OTHER ==
[2021-01-12 13:09] VITALS: BMI 18.5
[2021-01-12] MEDS ORDERED: Albumin 25% 100 ML ONE (13:10)
[2021-01-12] MEDS ORDERED: Ondansetron PF 4 MG/2 ML Vial ONE (13:11)
[2021-01-12] MEDS ORDERED: Sodium Bicarbonate 2.5 MEQ/5 ML VIAL ONE (13:11)
[2021-01-12 15:34] VITALS: BP 86/52; TEMP 98.7
== END 2021-01-12 14:45 | disposition home or self-care (01) ==
LOC: CSHULT 13:01
PROVIDERS: ATTEND Internal Medicine Gastroenterology
DX: R18.8 Other ascites (principal)
CPT/HCPCS: 49083; J2405; P9047

== ENCOUNTER 2021-01-16 12:57 | Day surgery (SDC) | payer OTHER ==
[2021-01-16 13:05] VITALS: BMI 18.5
[2021-01-16] MEDS ORDERED: Albumin 25% 100 ML ONE (13:06)
[2021-01-16] MEDS ORDERED: Ondansetron PF 4 MG/2 ML Vial ONE (13:06)
[2021-01-16] MEDS ORDERED: Sodium Bicarbonate 2.5 MEQ/5 ML VIAL ONE (13:06)
[2021-01-16 14:39] VITALS: BP 114/88; TEMP 97.8
[2021-01-16 14:55] LABS: INR-International Normal Ratio 1.3; Prothrombin Time 13.8 sec (9.5-12.1)
[2021-01-16 15:02] LABS: ALT (SGPT) 39 U/L (8-55); AST (SGOT) 97 U/L (5-34); Alkaline Phosphatase 282 U/L (40-110); Anion Gap 21 mmol/L (10-20); BUN (Urea Nitrogen) 35 mg/dL (7.0-18.7); Calc. Creatinine Clearance 7 mL/min (70-130); Calcium 7.8 mg/dL (7.8-10.44); Carbon Dioxide 17 mmol/L (22-29); Chloride 98 mmol/L (98-107); Globulin 2.9 g/dL (2.4-3.5); Glucose 106 mg/dL (70-105); Potassium 3.5 mmol/L (3.5-5.1); Protein, Total 5.9 g/dL (6.0-8.3); Sodium 132 mmol/L (136-145)
== END 2021-01-16 14:50 | disposition home or self-care (01) ==
LOC: CSHULT 12:57
PROVIDERS: ATTEND Internal Medicine Gastroenterology
DX: R18.8 Other ascites (principal)
CPT/HCPCS: 49083; 80053; 85610; J2405; P9047

== ENCOUNTER → 2021-01-19 | Day surgery (SDC) | payer OTHER ==
[~2021-01-19] MED LIST changes: -Lidocaine 1% PF 5 ML VIAL ONE
[2021-01-19 13:20] VITALS: BMI 18.5
== END ==
LOC: CSHULT 12:52
PROVIDERS: ATTEND Internal Medicine Gastroenterology
DX: R18.8 Other ascites (principal); Z53.9 Procedure and treatment not carried out, unspecified reason
CPT/HCPCS: 76705; J2405; P9047

== ENCOUNTER 2021-01-20 18:19 | Inpatient (IN) | payer OTHER ==
[2021-01-20 19:32] LABS: #Basophils 0.1 10x3/uL (0.0-0.2); #Monocytes 0.9 10x3/uL (0.0-1.1); %Basophils 0.7 % (0.0-2.0); %Eosinophils 0.3 % (0.0-6.0); %Lymphocytes 7.9 % (18.0-47.0); %Monocytes 7.1 % (0.0-10.0); %Neutrophils 79.4 % (40.0-75.0); Hemoglobin 10.4 g/dL (12.0-15.5); Mean Corpuscular HGB CONC 33.1 g/dL (32.0-36.0); Mean Corpuscular Volume 93.7 fl (81.6-98.3); Mean Platelet Volume 11.4 fl (7.4-10.4); Platelet Count 179 10x3/uL (150-450); RBC Distribution Width 17.4 % (11.5-14.5); Red Blood Cell (RBC) Count 3.35 10x6/uL (3.90-5.03); White Blood Cell (WBC) Count 12.6 10x3/uL (3.5-10.5)
[2021-01-20 19:50] LABS: ALT (SGPT) 56 U/L (8-55); AST (SGOT) 129 U/L (5-34); Albumin 2.6 g/dL (3.5-5.0); Alkaline Phosphatase 283 U/L (40-110); Anion Gap 26 mmol/L (10-20); BUN (Urea Nitrogen) 24 mg/dL (7.0-18.7); Bilirubin, Total 11.9 mg/dL (0.2-1.2); Calc. Creatinine Clearance 0 mL/min (70-130); Calcium 9.4 mg/dL (7.8-10.44); Carbon Dioxide 19 mmol/L (22-29); Chloride 96 mmol/L (98-107); Globulin 3.8 g/dL (2.4-3.5); Glucose 117 mg/dL (70-105); Lipase 172 U/L (8-78); Potassium 3.8 mmol/L (3.5-5.1); Protein, Total 6.4 g/dL (6.0-8.3); Sodium 137 mmol/L (136-145)
[2021-01-20 19:51] LABS: BHCG - Serum Negative (NEGATIVE); Pregs Control Background? CLEAR/WHITE (CLR/WHITE); Pregs Control Bar Appear? YES (CONTROL BAR)
[2021-01-20] MEDS ORDERED: Pantoprazole 40 MG VIAL ONE ×2 (21:02→21:14)
[2021-01-20] MEDS ORDERED: Octreotide Acetate 50 MCG/ML AMP ONE (21:03)
[2021-01-20] MEDS ORDERED: Octreotide Acetate 1,250 MCG in Sodium Chloride 0.9% 250 ML 250 ML IVPB SCH (21:15)
[2021-01-20] MEDS ORDERED: cefTRIAXone\\ROCEPHIN 1 GM VIAL ONE (21:20)
[2021-01-20] MEDS ORDERED: Guaifenesin DM 100-10/5 ML UDCUP PO PRN (21:21)
[2021-01-20] MEDS ORDERED: Calcium Carbonate 500 MG ChewTAB PO PRN (21:21)
[2021-01-20] MEDS ORDERED: traMADol HCl 50 MG TAB PO PRN (21:27)
[2021-01-20] MEDS ORDERED: Pantoprazole 80 MG in Sodium Chloride 0.9% 100 ML IVPB SCH (21:30)
[2021-01-20] MEDS ORDERED: Sodium Chloride 0.9% 1,000 ML IV SCH (21:45)
[2021-01-20] MEDS ORDERED: Ondansetron PF 4 MG/2 ML Vial ONE (21:59)
[2021-01-20 22:25] LABS: Hemoglobin 10.2 g/dL (12.0-15.5); Mean Corpuscular Hemoglobin 31.8 pg (27.0-33.0); Mean Corpuscular Volume 93.5 fl (81.6-98.3); Mean Platelet Volume 11.6 fl (7.4-10.4); Platelet Count 173 10x3/uL (150-450); RBC Distribution Width 17.5 % (11.5-14.5); Red Blood Cell (RBC) Count 3.21 10x6/uL (3.90-5.03); White Blood Cell (WBC) Count 11.5 10x3/uL (3.5-10.5)
[2021-01-20 22:32] LABS: Lactic Acid 3.5 mmol/L (0.5-2.2)
[2021-01-20 22:45] LABS: Lymphocytes 9 % (21-51)
[2021-01-20 22:46] LABS: Band 5 % (5-11); Metamyelocyte 1 % (0-0); Myelocyte 2 % (0-0)
[2021-01-20 22:47] LABS: Monocytes 3 % (0-10)
[2021-01-20 22:48] LABS: Anisocytosis SLIGHT = 6-15 cells (100X) (0-5/hpf); Neutrophil 80 % (42-75)
[2021-01-20 22:49] LABS: Macrocytosis SLIGHT = 6-15 cells (100X) (0-5/hpf); Microcytosis SLIGHT = 6-15 cells (100X) (0-5/hpf)
[2021-01-20 22:51] LABS: Target Cells MODERATE= 6-15 cells (100X) (0-1/hpf)
[2021-01-20 22:53] LABS: Ovalocytes SLIGHT = 2-5 cells (100X) (0-1/hpf); Polychromasia SLIGHT = 2-3 cells (100X) (0-2/hpf)
[2021-01-20 22:54] LABS: Large Platelets SLIGHT; Platelet Morphology Comment Appears Adequate; Toxic Granulation SLIGHT
[2021-01-20 22:55] LABS: MDiff Complete? YES; Manual Diff?? YES
[2021-01-21] MEDS ORDERED: Rifaximin 550 MG TAB PO SCH (01:30)
[2021-01-21 01:33] LABS: SARS-CoV-2 NAA Rapid Test DETECTED (NotDetected)
[2021-01-21] MEDS: Ondansetron PF 4 MG/2 ML Vial IVP PRN (03:10)
[2021-01-21 04:30] LABS: #Basophils 0.1 10x3/uL (0.0-0.2); #Monocytes 0.7 10x3/uL (0.0-1.1); #Neutrophils 6.9 10x3/uL (1.5-8.4); %Basophils 0.7 % (0.0-2.0); %Eosinophils 0.4 % (0.0-6.0); %Lymphocytes 11.2 % (18.0-47.0); %Monocytes 7.9 % (0.0-10.0); %Neutrophils 75.5 % (40.0-75.0); Hemoglobin 9.1 g/dL (12.0-15.5); Mean Corpuscular HGB CONC 33.3 g/dL (32.0-36.0); Mean Corpuscular Hemoglobin 31.3 pg (27.0-33.0); Mean Corpuscular Volume 93.8 fl (81.6-98.3); Mean Platelet Volume 11.8 fl (7.4-10.4); Platelet Count 144 10x3/uL (150-450); RBC Distribution Width 17.6 % (11.5-14.5); Red Blood Cell (RBC) Count 2.91 10x6/uL (3.90-5.03); White Blood Cell (WBC) Count 9.1 10x3/uL (3.5-10.5)
[2021-01-21 04:39] LABS: ALT (SGPT) 48 U/L (8-55); AST (SGOT) 109 U/L (5-34); Albumin 2.1 g/dL (3.5-5.0); Alkaline Phosphatase 231 U/L (40-110); Anion Gap 23 mmol/L (10-20); BUN (Urea Nitrogen) 26 mg/dL (7.0-18.7); Bilirubin, Total 9.8 mg/dL (0.2-1.2); Calc. Creatinine Clearance 8 mL/min (70-130); Calcium 8.5 mg/dL (7.8-10.44); Carbon Dioxide 16 mmol/L (22-29); Chloride 102 mmol/L (98-107); Globulin 3.2 g/dL (2.4-3.5); Glucose 80 mg/dL (70-105); INR-International Normal Ratio 1.7; PTT 35.9 sec (22.0-33.0); Potassium 3.5 mmol/L (3.5-5.1); Protein, Total 5.3 g/dL (6.0-8.3); Prothrombin Time 18.5 sec (9.5-12.1); Sodium 137 mmol/L (136-145)
[2021-01-21 04:42] LABS: Lactic Acid 4.2 mmol/L (0.5-2.2)
[2021-01-21] MEDS: Levothyroxine Sodium 50 MCG TAB PO SCH (05:32)
[2021-01-21] MEDS: Cyanocobalamin (Vitamin B-12) 1,000 MCG TAB PO SCH (08:29)
[2021-01-21] MEDS: Folic Acid 1 MG TAB PO SCH (08:29)
[2021-01-21] MEDS ORDERED: VITAMIN A 8000 UNIT PO SCH (09:00)
[2021-01-21] MEDS ORDERED: Octreotide Acetate 1,250 MCG in Sodium Chloride 0.9% 250 ML 250 ML IVPB SCH (09:30)
[2021-01-21] MEDS: Rifaximin 550 MG TAB PO SCH ×2 (09:51→20:39)
[2021-01-21] MEDS: Ursodiol 300 MG CAP PO SCH ×2 (09:51→20:39)
[2021-01-21] MEDS: cefTRIAXone\\ROCEPHIN 1 GM in Sodium Chloride 0.9% 100 ML IVPB SCH (20:39)
[2021-01-21] MEDS ORDERED: Vancomycin 1 GM in Premix Bag 1 BAG IVPB SCH ×2 (22:15→22:30)
[2021-01-21] MEDS ORDERED: Vancomycin HCl 750 MG in Sodium Chloride 0.9% 250 ML 250 ML IVPB SCH (22:30)
[2021-01-21] MEDS ORDERED: Vancomycin HCl 500 MG in Sodium Chloride 0.9% 100 ML IVPB SCH (22:30)
[2021-01-21] MEDS ORDERED: HOLD VANCOMYCIN FOR LEVEL >20 FS SCH (22:30)
[2021-01-21] MEDS ORDERED: Vancomycin HCl 250 MG in Sodium Chloride 0.9% 100 ML IVPB SCH (22:30)
[2021-01-21] MEDS ORDERED: Vancomycin HCl 1 GM in Sodium Chloride 0.9% 250 ML 250 ML IVPB SCH (22:30)
[2021-01-22 04:43] LABS: #Basophils 0.1 10x3/uL (0.0-0.2); #Eosinphils 0.1 10x3/uL (0.0-0.5); #Monocytes 0.4 10x3/uL (0.0-1.1); %Basophils 0.9 % (0.0-2.0); %Eosinophils 0.9 % (0.0-6.0); %Monocytes 5.6 % (0.0-10.0); %Neutrophils 79.8 % (40.0-75.0); Hemoglobin 9.8 g/dL (12.0-15.5); Mean Corpuscular HGB CONC 32.8 g/dL (32.0-36.0); Mean Corpuscular Hemoglobin 31.5 pg (27.0-33.0); Mean Corpuscular Volume 96.1 fl (81.6-98.3); Mean Platelet Volume 11.8 fl (7.4-10.4); Platelet Count 120 10x3/uL (150-450); RBC Distribution Width 18.4 % (11.5-14.5); Red Blood Cell (RBC) Count 3.11 10x6/uL (3.90-5.03); White Blood Cell (WBC) Count 7.5 10x3/uL (3.5-10.5)
[2021-01-22 04:52] LABS: Anion Gap 17 mmol/L (10-20); BUN (Urea Nitrogen) 16 mg/dL (7.0-18.7); Calc. Creatinine Clearance 12 mL/min (70-130); Calcium 7.9 mg/dL (7.8-10.44); Carbon Dioxide 19 mmol/L (22-29); Chloride 105 mmol/L (98-107); Glucose 98 mg/dL (70-105); Sodium 137 mmol/L (136-145)
[2021-01-22] MEDS: Levothyroxine Sodium 50 MCG TAB PO SCH (05:22)
[2021-01-22] MEDS: Cyanocobalamin (Vitamin B-12) 1,000 MCG TAB PO SCH (08:05)
[2021-01-22] MEDS: Rifaximin 550 MG TAB PO SCH ×2 (08:05→20:27)
[2021-01-22] MEDS: Ursodiol 300 MG CAP PO SCH ×2 (08:05→20:27)
[2021-01-22] MEDS: Folic Acid 1 MG TAB PO SCH (08:05)
[2021-01-22] MEDS ORDERED: EPOETIN ALFA-EPBX (ESRD) 4,000 UNIT/ML VIAL SC SCH (12:00)
[2021-01-22] MEDS ORDERED: Octreotide Acetate 1,250 MCG in Sodium Chloride 0.9% 250 ML 250 ML IVPB SCH (13:00)
[2021-01-22] MEDS: cefTRIAXone\\ROCEPHIN 1 GM in Sodium Chloride 0.9% 100 ML IVPB SCH (20:28)
[2021-01-22] MEDS: Pantoprazole 40 MG VIAL IVP SCH (20:28)
[2021-01-23] MEDS: Ondansetron PF 4 MG/2 ML Vial IVP PRN ×2 (03:30→12:30)
[2021-01-23 04:11] VITALS: BMI 17.9
[2021-01-23 06:03] LABS: Vancomycin, Random 18.3 ug/mL (See Comment)
[2021-01-23 06:05] LABS: Anion Gap 21 mmol/L (10-20); BUN (Urea Nitrogen) 27 mg/dL (7.0-18.7); Calc. Creatinine Clearance 9 mL/min (70-130); Calcium 8.4 mg/dL (7.8-10.44); Carbon Dioxide 13 mmol/L (22-29); Chloride 105 mmol/L (98-107); Glucose 95 mg/dL (70-105); Potassium 4.6 mmol/L (3.5-5.1); Sodium 134 mmol/L (136-145)
[2021-01-23 06:09] LABS: #Basophils 0.1 10x3/uL (0.0-0.2); #Eosinphils 0.1 10x3/uL (0.0-0.5); #Monocytes 0.2 10x3/uL (0.0-1.1); #Neutrophils 6.4 10x3/uL (1.5-8.4); %Basophils 0.8 % (0.0-2.0); %Eosinophils 0.6 % (0.0-6.0); %Lymphocytes 10.2 % (18.0-47.0); %Monocytes 2.2 % (0.0-10.0); %Neutrophils 82.4 % (40.0-75.0); Hemoglobin 10.6 g/dL (12.0-15.5); Mean Corpuscular HGB CONC 33.1 g/dL (32.0-36.0); Mean Corpuscular Hemoglobin 31.8 pg (27.0-33.0); Mean Corpuscular Volume 96.1 fl (81.6-98.3); Platelet Count 120 10x3/uL (150-450); RBC Distribution Width 18.5 % (11.5-14.5); Red Blood Cell (RBC) Count 3.33 10x6/uL (3.90-5.03); White Blood Cell (WBC) Count 7.8 10x3/uL (3.5-10.5)
[2021-01-23 08:44] LABS: ALT (SGPT) 54 U/L (8-55); AST (SGOT) 116 U/L (5-34); Albumin 2.4 g/dL (3.5-5.0); Alkaline Phosphatase 284 U/L (40-110); Anion Gap 21 mmol/L (10-20); BUN (Urea Nitrogen) 28 mg/dL (7.0-18.7); Bilirubin, Direct 7.9 mg/dL (0.1-0.3); Bilirubin, Total 10.9 mg/dL (0.2-1.2); Calc. Creatinine Clearance 9 mL/min (70-130); Calcium 8.5 mg/dL (7.8-10.44); Carbon Dioxide 14 mmol/L (22-29); Chloride 105 mmol/L (98-107); Globulin 3.9 g/dL (2.4-3.5); Glucose 68 mg/dL (70-105); Potassium 5.7 mmol/L (3.5-5.1); Protein, Total 6.3 g/dL (6.0-8.3); Sodium 134 mmol/L (136-145)
[2021-01-23] MEDS ORDERED: Vancomycin HCl 250 MG, Admixture Fee 1 EACH in Sodium Chloride 0.9% 100 ML IVPB SCH (08:45)
[2021-01-23] MEDS: Levothyroxine Sodium 50 MCG TAB PO SCH (09:19)
[2021-01-23] MEDS: Cyanocobalamin (Vitamin B-12) 1,000 MCG TAB PO SCH (09:20)
[2021-01-23] MEDS: Folic Acid 1 MG TAB PO SCH (09:20)
[2021-01-23] MEDS: Pantoprazole 40 MG VIAL IVP SCH (09:20)
[2021-01-23] MEDS ORDERED: Sodium Bicarbonate 2.5 MEQ/5 ML VIAL ONE (10:13)
[2021-01-23 10:47] LABS: INR-International Normal Ratio 1.6; Prothrombin Time 17.1 sec (9.5-12.1)
[2021-01-23] MEDS ORDERED: Albumin 25% 25 GM/100 ML BOT IVPB SCH (10:52)
[2021-01-23] MEDS: Ursodiol 300 MG CAP PO SCH (13:19)
[2021-01-23] MEDS: Rifaximin 550 MG TAB PO SCH (13:19)
[2021-01-23 19:29] VITALS: BP 90/53; TEMP 97.7
== END 2021-01-23 20:15 | disposition home or self-care (01) | DRG 441 ==
LOC: CSHERS 18:19 → CSHIMCU 21:21 → UNDOADMIN 01-21 00:58 → CSHIMCU 01-21 00:58 → CSHICU 01-21 02:10 → CSHIMCU 01-21 02:10 → CSHTELE 01-23 03:30 → CSHICU 01-23 03:30
PROVIDERS: ADMIT Student in an Organized Health Care Education/Training Program; ATTEND Family Medicine
PROC: 5A1D70Z Performance of Urinary Filtration, Intermittent, Less than 6 Hours Per Day (ICD-10-PCS; principal; 2021-01-21)
PROC: 8E0ZXY6 Isolation (ICD-10-PCS; 2021-01-21)
PROC: 0W9G3ZZ Drainage of Peritoneal Cavity, Percutaneous Approach (ICD-10-PCS; 2021-01-23)
DX: K72.00 Acute and subacute hepatic failure without coma (principal); K76.7 Hepatorenal syndrome; N18.6 End stage renal disease; U07.1 COVID-19; I85.11 Secondary esophageal varices with bleeding; E87.2 Acidosis; R18.8 Other ascites; D62 Acute posthemorrhagic anemia; K76.6 Portal hypertension; R65.10 Systemic inflammatory response syndrome (SIRS) of non-infectious origin without acute organ dysfunction; E03.9 Hypothyroidism, unspecified; Z99.2 Dependence on renal dialysis; D63.1 Anemia in chronic kidney disease; K75.4 Autoimmune hepatitis; F17.210 Nicotine dependence, cigarettes, uncomplicated; E87.5 Hyperkalemia; Z79.890 Hormone replacement therapy; Z79.899 Other long term (current) drug therapy; T47.3X6A Underdosing of saline and osmotic laxatives, initial encounter; Z91.128 Patient's intentional underdosing of medication regimen for other reason
CPT/HCPCS: 36415; 49083; 80048; 80053; 80076; 80202; 82140; 83605; 83690; 84703; 85025; 85610; 85730; 86850; 86900; 86901; 87040; 87149; 90935; 96365; 96366; 96368; 96375; 96376; C9113; G0257; J0696; J2354; J2405; J3370; J3490; J7050; P9047; Q5105; U0002

== ENCOUNTER 2021-10-30 09:02 | Inpatient (IN) | payer OTHER, SELFPAY ==
[2021-10-30] MEDS ORDERED: methylPREDNISolone Sod Succ/PF 125 MG/2 ML VIAL ONE (09:18)
[2021-10-30] MEDS ORDERED: Magnesium 2 GM/50 ML BAG (IN WATER) ONE (09:18)
[2021-10-30 09:33] LABS: #Basophils 0.1 10x3/uL (0.0-0.2); #Eosinphils 0.1 10x3/uL (0.0-0.5); #Monocytes 0.7 10x3/uL (0.0-1.1); %Basophils 0.9 % (0.0-2.0); %Eosinophils 0.8 % (0.0-6.0); %Lymphocytes 7.3 % (18.0-47.0); %Monocytes 5.2 % (0.0-10.0); %Neutrophils 81.8 % (40.0-75.0); Hemoglobin 11.6 g/dL (12.0-15.5); Mean Corpuscular HGB CONC 29.8 g/dL (32.0-36.0); Mean Corpuscular Hemoglobin 28.4 pg (27.0-33.0); Mean Corpuscular Volume 95.1 fl (81.6-98.3); Mean Platelet Volume 9.9 fl (7.4-10.4); Platelet Count 364 10x3/uL (150-450); Red Blood Cell (RBC) Count 4.09 10x6/uL (3.90-5.03); White Blood Cell (WBC) Count 13.4 10x3/uL (3.5-10.5)
[2021-10-30] MEDS ORDERED: Azithromycin 500 MG VIAL ONE (09:35)
[2021-10-30] MEDS ORDERED: cefTRIAXone\\ROCEPHIN 1 GM VIAL ONE (09:35)
[2021-10-30 09:48] LABS: ALT (SGPT) 15 U/L (8-55); AST (SGOT) 24 U/L (5-34); Albumin 3.6 g/dL (3.5-5.0); Alkaline Phosphatase 83 U/L (40-110); Anion Gap 26 mmol/L (10-20); BUN (Urea Nitrogen) 48 mg/dL (7.0-18.7); Bilirubin, Total 0.5 mg/dL (0.2-1.2); CK (CPK) 41 U/L (29-168); Calc. Creatinine Clearance 0 mL/min (70-130); Carbon Dioxide 17 mmol/L (22-29); Chloride 98 mmol/L (98-107); Globulin 3.7 g/dL (2.4-3.5); Glucose 232 mg/dL (70-105); Lipase 16 U/L (8-78); Magnesium 3.1 mg/dL (1.6-2.6); Protein, Total 7.3 g/dL (6.0-8.3); Sodium 135 mmol/L (136-145)
[2021-10-30 09:59] LABS: SARS-CoV-2 NAA Rapid Test Not Detected (NotDetected)
[2021-10-30 10:07] LABS: Ovalocytes SLIGHT = 2-5 cells (100X) (0-1/hpf); Platelet Morphology Comment Appears Adequate
[2021-10-30 10:41] LABS: Hep B Surf Ag Non-Reactive S/CO (NonReactive)
[2021-10-30 10:42] LABS: HBSAg Index 0.18 S/CO (0-0.99)
[2021-10-30] MEDS ORDERED: HYDROcodone/Acetaminophen 5/325 mg Tablet PO PRN (10:56)
[2021-10-30] MEDS ORDERED: Ondansetron PF 4 MG/2 ML Vial IVP PRN (10:56)
[2021-10-30] MEDS ORDERED: Acetaminophen 325 MG TAB PO PRN (10:56)
[2021-10-30] MEDS ORDERED: Acetaminophen 650 MG Suppository PR PRN (10:56)
[2021-10-30] MEDS ORDERED: Bisacodyl 5 MG TAB PO PRN (10:56)
[2021-10-30] MEDS ORDERED: Senokot S 8.6-50 MG TAB PO PRN (10:56)
[2021-10-30] MEDS ORDERED: Ondansetron ODT 4 MG TAB PO PRN (10:56)
[2021-10-30 11:26] VITALS: BMI 27.0
[2021-10-30 11:45] LABS: Cardiac Risk 4.3 (Less than 4.5)
[2021-10-30 13:05] LABS: Actual Bicarbonate (HCO3a) 18.7 mEq/L (22-28); Base Excess (BEa) -7.3 mEq/L (-2.0 to +3.0); CO2 Tension 39.6 mmHg (35.0-45.0); Calcium, Ionized (arterial) 1.11 mmol/L (1.12-1.30); Carboxyhemoglobin (COHb) 0.6 gm% (0.0-3.0); Hemoglobin (Hb) 11.7 g/dL (12.0-16.0); O2 Tension (PaO2), arterial 59.8 mmHg (80.0-100.0); Potassium - ABG Lab 5.8 mmol/L (3.70-5.30); Puncture Site LBA; pH, Arterial 7.29 (7.35-7.45)
[2021-10-30 14:19] LABS: Hemoglobin A1c 4.4 % (4.0-6.0)
[2021-10-30] MEDS ORDERED: Heparin 10,000 UNITS/ 10 ML VIAL FS PRN (14:43)
[2021-10-30] MEDS: Heparin 5,000 UNITS/ML VIAL SC SCH ×2 (15:10→21:16)
[2021-10-30 15:57] LABS: HBSAB Concentration Less than 8.00 mIU/mL; Hep B Core Total Ab Non-Reactive (NonReactive); Hep B Core Total Index 0.08 S/CO (0-0.79); Hep B Surf AB Non-Reactive (NonReactive); Hep C IgG Ab Non-Reactive (NonReactive)
[2021-10-30 16:28] LABS: Anion Gap 24 mmol/L (10-20); BUN (Urea Nitrogen) 26 mg/dL (7.0-18.7); Calc. Creatinine Clearance 15 mL/min (70-130); Calcium 9.5 mg/dL (7.8-10.44); Carbon Dioxide 19 mmol/L (22-29); Chloride 100 mmol/L (98-107); Glucose 105 mg/dL (70-105); Potassium 4.8 mmol/L (3.5-5.1); Sodium 138 mmol/L (136-145)
[2021-10-30] MEDS ORDERED: Mycophenolate 250 MG CAP PO SCH (20:00)
[2021-10-30] MEDS ORDERED: Tacrolimus 1 MG CAP PO SCH (20:00)
[2021-10-30] MEDS ORDERED: Dextrose 50% Abboject 50 ML SYRINGE SLOW IVP PRN (20:39)
[2021-10-30] MEDS ORDERED: HumaLOG 300 UNITS/3 ML VIAL SC PRN (20:39)
[2021-10-30] MEDS ORDERED: Dextrose 5% in Water 1,000 ML IV PRN (20:39)
[2021-10-30] MEDS ORDERED: Carvedilol 12.5 MG TAB PO SCH ×2 (21:00)
[2021-10-30] MEDS: Atorvastatin Calcium 20 MG TAB PO SCH (21:45)
[2021-10-31 03:54] LABS: #Monocytes 0.4 10x3/uL (0.0-1.1); #Neutrophils 5.7 10x3/uL (1.5-8.4); %Basophils 0.1 % (0.0-2.0); %Lymphocytes 6.6 % (18.0-47.0); %Monocytes 6.4 % (0.0-10.0); %Neutrophils 85.9 % (40.0-75.0); Hemoglobin 10.7 g/dL (12.0-15.5); Mean Corpuscular HGB CONC 31.1 g/dL (32.0-36.0); Mean Corpuscular Hemoglobin 28.1 pg (27.0-33.0); Mean Corpuscular Volume 90.3 fl (81.6-98.3); Mean Platelet Volume 10.2 fl (7.4-10.4); Platelet Count 260 10x3/uL (150-450); RBC Distribution Width 13.9 % (11.5-14.5); Red Blood Cell (RBC) Count 3.81 10x6/uL (3.90-5.03); White Blood Cell (WBC) Count 6.7 10x3/uL (3.5-10.5)
[2021-10-31 04:03] LABS: ALT (SGPT) 19 U/L (8-55); AST (SGOT) 15 U/L (5-34); Albumin 3.7 g/dL (3.5-5.0); Alkaline Phosphatase 71 U/L (40-110); Anion Gap 23 mmol/L (10-20); BUN (Urea Nitrogen) 40 mg/dL (7.0-18.7); Bilirubin, Total 0.4 mg/dL (0.2-1.2); Calc. Creatinine Clearance 12 mL/min (70-130); Calcium 8.8 mg/dL (7.8-10.44); Carbon Dioxide 23 mmol/L (22-29); Chloride 99 mmol/L (98-107); Globulin 3.3 g/dL (2.4-3.5); Glucose 112 mg/dL (70-105); Potassium 5.1 mmol/L (3.5-5.1); Sodium 140 mmol/L (136-145)
[2021-10-31] MEDS: Levothyroxine Sodium 100 MCG TAB PO SCH (05:35)
[2021-10-31] MEDS ORDERED: Azithromycin 500 MG in Sodium Chloride 0.9% 250 ML 250 ML IVPB SCH (09:00)
[2021-10-31] MEDS ORDERED: cefTRIAXone\\ROCEPHIN 1 GM in Sodium Chloride 0.9% 100 ML IVPB SCH (09:00)
[2021-10-31] MEDS: Mycophenolate 250 MG CAP PO SCH ×2 (09:37→20:22)
[2021-10-31] MEDS: Carvedilol 3.125 MG TAB PO SCH ×2 (09:37→20:22)
[2021-10-31] MEDS: Aspirin Chewable 81 MG TAB PO SCH (09:37)
[2021-10-31] MEDS: predniSONE 5 MG TAB PO SCH (09:38)
[2021-10-31] MEDS: Tacrolimus 1 MG CAP PO SCH ×2 (09:38→20:22)
[2021-10-31] MEDS: Heparin 5,000 UNITS/ML VIAL SC SCH ×3 (09:38→20:59)
[2021-10-31] MEDS ORDERED: Senokot 8.6 MG TAB PO PRN (13:55)
[2021-10-31] MEDS: Atorvastatin Calcium 20 MG TAB PO SCH (20:22)
[2021-11-01] MEDS: Levothyroxine Sodium 100 MCG TAB PO SCH (05:22)
[2021-11-01 05:59] LABS: #Monocytes 0.5 10x3/uL (0.0-1.1); #Neutrophils 4.9 10x3/uL (1.5-8.4); %Basophils 0.3 % (0.0-2.0); %Eosinophils 0.5 % (0.0-6.0); %Lymphocytes 13.9 % (18.0-47.0); %Neutrophils 76.5 % (40.0-75.0); Hemoglobin 9.6 g/dL (12.0-15.5); Mean Corpuscular HGB CONC 31.7 g/dL (32.0-36.0); Mean Corpuscular Hemoglobin 28.5 pg (27.0-33.0); Mean Corpuscular Volume 89.9 fl (81.6-98.3); Mean Platelet Volume 10.2 fl (7.4-10.4); Platelet Count 236 10x3/uL (150-450); RBC Distribution Width 13.9 % (11.5-14.5); Red Blood Cell (RBC) Count 3.37 10x6/uL (3.90-5.03); White Blood Cell (WBC) Count 6.4 10x3/uL (3.5-10.5)
[2021-11-01 06:19] LABS: ALT (SGPT) 18 U/L (8-55); AST (SGOT) 14 U/L (5-34); Albumin 3.5 g/dL (3.5-5.0); Alkaline Phosphatase 78 U/L (40-110); Anion Gap 23 mmol/L (10-20); BUN (Urea Nitrogen) 72 mg/dL (7.0-18.7); Bilirubin, Total 0.3 mg/dL (0.2-1.2); Calc. Creatinine Clearance 9 mL/min (70-130); Calcium 8.4 mg/dL (7.8-10.44); Carbon Dioxide 25 mmol/L (22-29); Chloride 99 mmol/L (98-107); Glucose 88 mg/dL (70-105); Potassium 4.3 mmol/L (3.5-5.1); Protein, Total 6.5 g/dL (6.0-8.3); Sodium 143 mmol/L (136-145)
[2021-11-01] MEDS: Tacrolimus 1 MG CAP PO SCH ×2 (09:15→21:17)
[2021-11-01] MEDS: Heparin 5,000 UNITS/ML VIAL SC SCH ×4 (09:15→23:09)
[2021-11-01] MEDS: Aspirin Chewable 81 MG TAB PO SCH (09:15)
[2021-11-01] MEDS: Mycophenolate 250 MG CAP PO SCH ×2 (09:16→21:17)
[2021-11-01] MEDS: predniSONE 5 MG TAB PO SCH (09:16)
[2021-11-01] MEDS: Carvedilol 3.125 MG TAB PO SCH ×2 (09:16→21:17)
[2021-11-01] MEDS ORDERED: Lisinopril 5 MG TAB PO SCH (10:00)
[2021-11-01] MEDS: Atorvastatin Calcium 20 MG TAB PO SCH (21:17)
[2021-11-02] MEDS ORDERED: hydrALAZINE 20 MG/ML VIAL SLOW IVP PRN (00:55)
[2021-11-02 04:18] LABS: ALT (SGPT) 23 U/L (8-55); AST (SGOT) 24 U/L (5-34); Albumin 3.8 g/dL (3.5-5.0); Alkaline Phosphatase 75 U/L (40-110); Anion Gap 21 mmol/L (10-20); BUN (Urea Nitrogen) 26 mg/dL (7.0-18.7); Bilirubin, Total 0.3 mg/dL (0.2-1.2); Calc. Creatinine Clearance 15 mL/min (70-130); Carbon Dioxide 26 mmol/L (22-29); Chloride 98 mmol/L (98-107); Globulin 3.3 g/dL (2.4-3.5); Glucose 75 mg/dL (70-105); Potassium 3.6 mmol/L (3.5-5.1); Protein, Total 7.1 g/dL (6.0-8.3); Sodium 141 mmol/L (136-145)
[2021-11-02 04:29] LABS: #Monocytes 0.5 10x3/uL (0.0-1.1); #Neutrophils 4.4 10x3/uL (1.5-8.4); %Basophils 0.6 % (0.0-2.0); %Eosinophils 0.6 % (0.0-6.0); %Monocytes 7.5 % (0.0-10.0); %Neutrophils 72.2 % (40.0-75.0); Mean Corpuscular HGB CONC 31.4 g/dL (32.0-36.0); Mean Corpuscular Hemoglobin 28.1 pg (27.0-33.0); Mean Corpuscular Volume 89.3 fl (81.6-98.3); Mean Platelet Volume 10.2 fl (7.4-10.4); Platelet Count 269 10x3/uL (150-450); RBC Distribution Width 13.3 % (11.5-14.5); Red Blood Cell (RBC) Count 3.92 10x6/uL (3.90-5.03); White Blood Cell (WBC) Count 6.2 10x3/uL (3.5-10.5)
[2021-11-02] MEDS: Levothyroxine Sodium 100 MCG TAB PO SCH (05:59)
[2021-11-02 08:37] VITALS: TEMP 97.8
[2021-11-02] MEDS: predniSONE 5 MG TAB PO SCH (08:51)
[2021-11-02] MEDS: Mycophenolate 250 MG CAP PO SCH (08:52)
[2021-11-02] MEDS: Tacrolimus 1 MG CAP PO SCH (08:52)
[2021-11-02] MEDS: Carvedilol 3.125 MG TAB PO SCH (08:52)
[2021-11-02] MEDS: Heparin 5,000 UNITS/ML VIAL SC SCH (08:52)
[2021-11-02] MEDS: Aspirin Chewable 81 MG TAB PO SCH (08:52)
[2021-11-02 08:53] VITALS: BP 159/97
[2021-11-02] MEDS ORDERED: Lisinopril 10 MG TAB PO SCH (09:00)
[2021-11-02] MEDS ORDERED: Lisinopril 5 MG TAB PO SCH (09:00)
== END 2021-11-02 11:40 | disposition home or self-care (01) | DRG 291 ==
LOC: CSHERS 09:02 → CSHIMCU 10:32 → CSHTELE 10-31 16:30
PROVIDERS: ADMIT Family Medicine; ATTEND Family Medicine
PROC: 5A09357 Assistance with Respiratory Ventilation, Less than 24 Consecutive Hours, Continuous Positive Airway Pressure (ICD-10-PCS; principal; 2021-10-30)
PROC: 5A1D70Z Performance of Urinary Filtration, Intermittent, Less than 6 Hours Per Day (ICD-10-PCS; 2021-11-01)
DX: I13.2 Hypertensive heart and chronic kidney disease with heart failure and with stage 5 chronic kidney disease, or end stage renal disease (principal); J96.01 Acute respiratory failure with hypoxia; N18.6 End stage renal disease; I50.43 Acute on chronic combined systolic (congestive) and diastolic (congestive) heart failure; K76.6 Portal hypertension; Z94.4 Liver transplant status; E87.2 Acidosis; I85.10 Secondary esophageal varices without bleeding; E87.5 Hyperkalemia; Z20.822 Contact with and (suspected) exposure to COVID-19; D63.1 Anemia in chronic kidney disease; E03.9 Hypothyroidism, unspecified; R73.9 Hyperglycemia, unspecified; Z91.19 Patient's noncompliance with other medical treatment and regimen; Z87.891 Personal history of nicotine dependence; Z79.82 Long term (current) use of aspirin; Z79.899 Other long term (current) drug therapy
CPT/HCPCS: 36415; 36416; 36600; 71045; 80053; 80061; 82550; 82805; 83036; 83605; 83690; 83735; 83880; 84145; 84484; 85025; 86704; 86706; 86803; 87040; 87340; 90935; 93005; 93010; 93306; 94660; 94760; 96365; 96367; 96368; 96375; G0257; J0360; J0456; J0696; J1644; J2930; J3475; J3490; J7050; J7507; J7512; J7517; J7620; Q0162

== ENCOUNTER 2021-12-18 00:38 | Inpatient (IN) | payer OTHER ==
[2021-12-18 01:28] LABS: #Basophils 0.1 10x3/uL (0.0-0.2); #Eosinphils 0.1 10x3/uL (0.0-0.5); #Monocytes 0.5 10x3/uL (0.0-1.1); #Neutrophils 8.8 10x3/uL (1.5-8.4); %Basophils 0.8 % (0.0-2.0); %Eosinophils 1.2 % (0.0-6.0); %Lymphocytes 16.7 % (18.0-47.0); %Monocytes 4.1 % (0.0-10.0); %Neutrophils 76.5 % (40.0-75.0); Hemoglobin 13.7 g/dL (12.0-15.5); Mean Corpuscular HGB CONC 31.7 g/dL (32.0-36.0); Mean Corpuscular Hemoglobin 28.2 pg (27.0-33.0); Mean Corpuscular Volume 88.9 fl (81.6-98.3); Mean Platelet Volume 10.3 fl (7.4-10.4); Platelet Count 321 10x3/uL (150-450); RBC Distribution Width 15.9 % (11.5-14.5); Red Blood Cell (RBC) Count 4.86 10x6/uL (3.90-5.03); White Blood Cell (WBC) Count 11.5 10x3/uL (3.5-10.5)
[2021-12-18] MEDS ORDERED: Nitroglycerin 0.4 MG TAB 1 EACH ONE (01:30)
[2021-12-18] MEDS ORDERED: Nitroglycerin 50 MG/250 ML BOT 250 ML ONE (01:30)
[2021-12-18 01:43] LABS: ALT (SGPT) 28 U/L (8-55); AST (SGOT) 19 U/L (5-34); Albumin 4.5 g/dL (3.5-5.0); Alkaline Phosphatase 93 U/L (40-110); Anion Gap 29 mmol/L (10-20); BUN (Urea Nitrogen) 66 mg/dL (7.0-18.7); Bilirubin, Total 0.3 mg/dL (0.2-1.2); Calc. Creatinine Clearance 0 mL/min (70-130); Calcium 8.7 mg/dL (7.8-10.44); Carbon Dioxide 13 mmol/L (22-29); Chloride 99 mmol/L (98-107); Globulin 3.5 g/dL (2.4-3.5); Glucose 130 mg/dL (70-105); Sodium 134 mmol/L (136-145)
[2021-12-18 01:44] LABS: Potassium 7.4 mmol/L (3.5-5.1)
[2021-12-18] MEDS ORDERED: Calcium Gluc 4.6 MEQ/10 ML (100 MG/ML) ONE (02:23)
[2021-12-18] MEDS ORDERED: Sodium Bicarb 50 MEQ/50 ML VIAL ONE ×4 (02:24)
[2021-12-18] MEDS ORDERED: Dextrose 50% Abboject 50 ML SYRINGE ONE (02:25)
[2021-12-18] MEDS ORDERED: Insulin Regular 300 UNITS/3 ML VIAL ONE (02:25)
[2021-12-18] MEDS ORDERED: Senokot S 8.6-50 MG TAB PO PRN (03:01)
[2021-12-18] MEDS ORDERED: Acetaminophen 325 MG TAB PO PRN (03:01)
[2021-12-18] MEDS ORDERED: Ondansetron PF 4 MG/2 ML Vial IVP PRN (03:01)
[2021-12-18] MEDS ORDERED: Guaifenesin DM 100-10/5 ML UDCUP PO PRN (03:01)
[2021-12-18] MEDS ORDERED: Calcium Carbonate 500 MG ChewTAB PO PRN (03:01)
[2021-12-18] MEDS ORDERED: Senokot 8.6 MG TAB PO PRN (03:06)
[2021-12-18] MEDS ORDERED: Nitroglycerin 50 MG/250 ML BOT 250 ML IVPB SCH (03:15)
[2021-12-18] MEDS ORDERED: Mycophenolate 250 MG CAP PO SCH ×2 (03:15→06:45)
[2021-12-18 04:22] LABS: SARS-CoV-2 NAA Rapid Test Not Detected (NotDetected)
[2021-12-18 05:16] VITALS: BMI 22.6
[2021-12-18] MEDS ORDERED: Levothyroxine Sodium 100 MCG TAB PO SCH (06:00)
[2021-12-18] MEDS ORDERED: Heparin 10,000 UNITS/ 10 ML VIAL SLOW IVP PRN (06:17)
[2021-12-18 06:39] LABS: Lactic Acid 0.4 mmol/L (0.5-2.2)
[2021-12-18 06:44] LABS: Anion Gap 16 mmol/L (10-20); BUN (Urea Nitrogen) 35 mg/dL (7.0-18.7); Calc. Creatinine Clearance 14 mL/min (70-130); Calcium 8.7 mg/dL (7.8-10.44); Carbon Dioxide 24 mmol/L (22-29); Chloride 107 mmol/L (98-107); Glucose 81 mg/dL (70-105); Potassium 4.9 mmol/L (3.5-5.1); Sodium 142 mmol/L (136-145)
[2021-12-18] MEDS ORDERED: NIFEdipine XL 60 MG TAB PO SCH (07:00)
[2021-12-18] MEDS ORDERED: hydrALAZINE 25 MG TAB PO SCH (09:00)
[2021-12-18] MEDS: Heparin 5,000 UNITS/ML VIAL SC SCH ×3 (09:19→21:10)
[2021-12-18] MEDS: Carvedilol 12.5 MG TAB PO SCH ×2 (09:20→16:55)
[2021-12-18] MEDS: Aspirin Chewable 81 MG TAB PO SCH (09:20)
[2021-12-18] MEDS: Tacrolimus 1 MG CAP PO SCH ×2 (10:09→21:25)
[2021-12-18] MEDS: predniSONE 5 MG TAB PO SCH (11:02)
[2021-12-18 13:11] LABS: Anion Gap 19 mmol/L (10-20); BUN (Urea Nitrogen) 25 mg/dL (7.0-18.7); Calc. Creatinine Clearance 14 mL/min (70-130); Calcium 8.4 mg/dL (7.8-10.44); Carbon Dioxide 20 mmol/L (22-29); Chloride 102 mmol/L (98-107); Glucose 77 mg/dL (70-105); Potassium 5.1 mmol/L (3.5-5.1); Sodium 136 mmol/L (136-145)
[2021-12-18] MEDS ORDERED: Atorvastatin Calcium 20 MG TAB PO SCH (21:00)
[2021-12-18] MEDS: Mycophenolate 250 MG CAP PO SCH (21:24)
[2021-12-19 04:34] LABS: Anion Gap 19 mmol/L (10-20); BUN (Urea Nitrogen) 39 mg/dL (7.0-18.7); Calc. Creatinine Clearance 10 mL/min (70-130); Calcium 8.3 mg/dL (7.8-10.44); Carbon Dioxide 24 mmol/L (22-29); Chloride 102 mmol/L (98-107); Glucose 77 mg/dL (70-105); Potassium 5.8 mmol/L (3.5-5.1); Sodium 139 mmol/L (136-145)
[2021-12-19] MEDS ORDERED: Levothyroxine Sodium 125 MCG TAB PO SCH (06:00)
[2021-12-19] MEDS ORDERED: Calcium Gluconate 4.6 MEQ in Sodium Chloride 0.9% 100 ML IVPB SCH (08:00)
[2021-12-19] MEDS ORDERED: Insulin Regular 300 UNITS/3 ML VIAL IVP SCH (08:00)
[2021-12-19] MEDS: Aspirin Chewable 81 MG TAB PO SCH (08:58)
[2021-12-19] MEDS: Carvedilol 12.5 MG TAB PO SCH (08:58)
[2021-12-19] MEDS: Tacrolimus 1 MG CAP PO SCH (09:10)
[2021-12-19] MEDS: predniSONE 5 MG TAB PO SCH (09:11)
[2021-12-19] MEDS: Mycophenolate 250 MG CAP PO SCH (09:11)
[2021-12-19] MEDS: Heparin 5,000 UNITS/ML VIAL SC SCH (10:30)
[2021-12-19 12:40] VITALS: BP 144/92; TEMP 97.6
== END 2021-12-19 18:00 | disposition home or self-care (01) | DRG 291 ==
LOC: CSHERS 00:38 → CSHIMCU 05:02 → CSHTELE 12-19 13:49
PROVIDERS: ADMIT Student in an Organized Health Care Education/Training Program; ATTEND Internal Medicine
PROC: 5A09357 Assistance with Respiratory Ventilation, Less than 24 Consecutive Hours, Continuous Positive Airway Pressure (ICD-10-PCS; 2021-12-18)
PROC: 5A1D70Z Performance of Urinary Filtration, Intermittent, Less than 6 Hours Per Day (ICD-10-PCS; principal; 2021-12-19)
DX: I13.2 Hypertensive heart and chronic kidney disease with heart failure and with stage 5 chronic kidney disease, or end stage renal disease (principal); N18.6 End stage renal disease; J96.01 Acute respiratory failure with hypoxia; I50.23 Acute on chronic systolic (congestive) heart failure; Z94.4 Liver transplant status; E87.2 Acidosis; I16.1 Hypertensive emergency; Z20.822 Contact with and (suspected) exposure to COVID-19; I42.8 Other cardiomyopathies; E87.5 Hyperkalemia; D63.1 Anemia in chronic kidney disease; E03.9 Hypothyroidism, unspecified; Z79.899 Other long term (current) drug therapy; Z79.890 Hormone replacement therapy; Z99.2 Dependence on renal dialysis; Z79.82 Long term (current) use of aspirin; Z79.52 Long term (current) use of systemic steroids; Z87.891 Personal history of nicotine dependence; Z76.82 Awaiting organ transplant status
CPT/HCPCS: 36415; 71045; 80048; 80053; 83605; 83880; 84443; 84484; 85025; 90935; 93005; 93306; 94660; 94760; 96374; 96375; G0257; J0610; J1644; J1815; J3490; J7507; J7512; J7517; J7999; U0002

== ENCOUNTER 2021-12-24 16:17 | Observation (INO) | payer OTHER ==
[2021-12-24 17:57] LABS: #Monocytes 0.4 10x3/uL (0.0-1.1); #Neutrophils 6.1 10x3/uL (1.5-8.4); %Basophils 0.4 % (0.0-2.0); %Eosinophils 0.4 % (0.0-6.0); %Lymphocytes 5.9 % (18.0-47.0); %Monocytes 5.7 % (0.0-10.0); %Neutrophils 85.9 % (40.0-75.0); Mean Corpuscular HGB CONC 31.3 g/dL (32.0-36.0); Mean Corpuscular Hemoglobin 27.8 pg (27.0-33.0); Mean Corpuscular Volume 89.1 fl (81.6-98.3); Mean Platelet Volume 10.3 fl (7.4-10.4); Platelet Count 260 10x3/uL (150-450); RBC Distribution Width 15.8 % (11.5-14.5); Red Blood Cell (RBC) Count 4.31 10x6/uL (3.90-5.03); White Blood Cell (WBC) Count 7.2 10x3/uL (3.5-10.5)
[2021-12-24 18:07] LABS: ALT (SGPT) 19 U/L (8-55); AST (SGOT) 16 U/L (5-34); Alkaline Phosphatase 72 U/L (40-110); Anion Gap 22 mmol/L (10-20); BUN (Urea Nitrogen) 76 mg/dL (7.0-18.7); Bilirubin, Total 0.3 mg/dL (0.2-1.2); Calc. Creatinine Clearance 0 mL/min (70-130); Calcium 8.8 mg/dL (7.8-10.44); Carbon Dioxide 16 mmol/L (22-29); Chloride 104 mmol/L (98-107); Globulin 3.2 g/dL (2.4-3.5); Glucose 104 mg/dL (70-105); Protein, Total 7.2 g/dL (6.0-8.3); Sodium 134 mmol/L (136-145)
[2021-12-24 18:20] LABS: Potassium 8.1 mmol/L (3.5-5.1)
[2021-12-24] MEDS ORDERED: Sodium Bicarb 50 MEQ/50 ML Abboject 8.4% SYRINGE ONE (18:42)
[2021-12-24] MEDS ORDERED: Insulin Regular 300 UNITS/3 ML VIAL ONE (18:42)
[2021-12-24] MEDS ORDERED: Dextrose 50% Abboject 50 ML SYRINGE ONE (18:42)
[2021-12-24] MEDS ORDERED: Calcium Chloride 1 GM/10 ML Abboject SYRINGE ONE (18:42)
[2021-12-24] MEDS ORDERED: LOKELMA 10 GM PACKET PO SCH (18:45)
[2021-12-24] MEDS ORDERED: Senokot 8.6 MG TAB PO PRN (19:44)
[2021-12-24 20:22] LABS: Magnesium 1.9 mg/dL (1.6-2.6); Phosphorus 6.1 mg/dL (2.3-4.7)
[2021-12-24 20:41] VITALS: BMI 19.9
[2021-12-24] MEDS ORDERED: Heparin 5,000 UNITS/ML VIAL SC SCH (21:00)
[2021-12-24] MEDS ORDERED: Tacrolimus 1 MG CAP PO SCH (21:00)
[2021-12-24] MEDS ORDERED: Mycophenolate 250 MG CAP PO SCH (21:00)
[2021-12-24 23:26] VITALS: BP 163/101; TEMP 98.2
[2021-12-25] MEDS ORDERED: Levothyroxine Sodium 125 MCG TAB PO SCH (06:00)
[2021-12-25] MEDS ORDERED: Carvedilol 12.5 MG TAB PO SCH (08:00)
[2021-12-25] MEDS ORDERED: LOKELMA 5 GM PACKET PO SCH (09:00)
[2021-12-25] MEDS ORDERED: Aspirin Chewable 81 MG TAB PO SCH (09:00)
== END 2021-12-25 01:30 | disposition left against medical advice (07) ==
LOC: CSHERS 16:17 → CSHIMCU 20:09 → INTOOBSV 20:09
PROVIDERS: ADMIT Family Medicine; ATTEND Family Medicine
DX: E87.5 Hyperkalemia (principal); I13.2 Hypertensive heart and chronic kidney disease with heart failure and with stage 5 chronic kidney disease, or end stage renal disease; I50.22 Chronic systolic (congestive) heart failure; N18.6 End stage renal disease; Z99.2 Dependence on renal dialysis; E03.9 Hypothyroidism, unspecified; K76.89 Other specified diseases of liver; Z94.4 Liver transplant status; Z79.899 Other long term (current) drug therapy; Z79.82 Long term (current) use of aspirin
CPT/HCPCS: 71046; 80053; 83735; 84100; 85025; 90935; 93005; 96374; 96375; G0257; G0378; J1644; J1815; J7507; J7517; J7999

== ENCOUNTER 2022-09-23 02:37 | Emergency (ER) | payer OTHER ==
[2022-09-23 03:31] LABS: #Eosinphils 0.1 10x3/uL (0.0-0.5); #Monocytes 0.4 10x3/uL (0.0-1.1); #Neutrophils 5.7 10x3/uL (1.5-8.4); %Basophils 0.6 % (0.0-2.0); %Eosinophils 1.7 % (0.0-6.0); %Lymphocytes 13.3 % (18.0-47.0); %Monocytes 5.8 % (0.0-10.0); %Neutrophils 78.3 % (40.0-75.0); Hemoglobin 11.7 g/dL (12.0-15.5); Mean Corpuscular HGB CONC 32.3 g/dL (32.0-36.0); Mean Corpuscular Hemoglobin 29.8 pg (27.0-33.0); Mean Corpuscular Volume 92.1 fl (81.6-98.3); Mean Platelet Volume 10.2 fl (7.4-10.4); Platelet Count 230 10x3/uL (150-450); RBC Distribution Width 14.3 % (11.5-14.5); Red Blood Cell (RBC) Count 3.93 10x6/uL (3.90-5.03); White Blood Cell (WBC) Count 7.2 10x3/uL (3.5-10.5)
[2022-09-23 03:42] LABS: Magnesium 2.1 mg/dL (1.6-2.6)
[2022-09-23 04:03] LABS: SARS-CoV-2 NAA Rapid Test Not Detected (NotDetected)
[2022-09-23 05:06] LABS: Anion Gap 24 mmol/L (10-20); BUN (Urea Nitrogen) 58 mg/dL (7.0-18.7); Calc. Creatinine Clearance 0 mL/min (70-130); Calcium 8.4 mg/dL (7.8-10.44); Carbon Dioxide 22 mmol/L (22-29); Chloride 99 mmol/L (98-107); Estimated GFR 4; Glucose 83 mg/dL (70-105); Sodium 140 mmol/L (136-145)
[2022-09-23 05:40] LABS: PTT 29.5 sec (22.0-33.0); Prothrombin Time 11.2 sec (9.5-12.1)
[2022-09-23 11:20] LABS: Hep B Surf Ag Non-Reactive S/CO (NonReactive)
[2022-09-23 16:54] LABS: HBSAB Concentration Less than 8.00 mIU/mL; Hep B Core Total Ab Non-Reactive (NonReactive); Hep B Core Total Index 0.12 S/CO (0-0.79); Hep B Surf AB Non-Reactive (NonReactive); Hep C IgG Ab Non-Reactive (NonReactive); Hep C Index 0.09 S/CO (0-0.79)
== END 2022-09-23 13:00 | disposition home or self-care (01) ==
LOC: CSHERS 02:37
DX: E87.70 Fluid overload, unspecified (principal); E66.9 Obesity, unspecified; I12.0 Hypertensive chronic kidney disease with stage 5 chronic kidney disease or end stage renal disease; N18.6 End stage renal disease; K21.9 Gastro-esophageal reflux disease without esophagitis; Z87.891 Personal history of nicotine dependence; Z99.2 Dependence on renal dialysis; Z20.822 Contact with and (suspected) exposure to COVID-19
CPT/HCPCS: 36415; 71045; 80048; 83735; 83880; 85025; 85610; 85730; 86704; 90935; 93005; G0257; U0002

== ENCOUNTER 2022-11-06 14:16 | Emergency (ER) | payer OTHER ==
[2022-11-06 15:13] LABS: #Eosinphils 0.1 10x3/uL (0.0-0.5); #Monocytes 0.4 10x3/uL (0.0-1.1); #Neutrophils 4.3 10x3/uL (1.5-8.4); %Basophils 0.5 % (0.0-2.0); %Eosinophils 0.9 % (0.0-6.0); %Lymphocytes 15.4 % (18.0-47.0); %Monocytes 6.9 % (0.0-10.0); %Neutrophils 75.9 % (40.0-75.0); Mean Corpuscular Volume 93.5 fl (81.6-98.3); Mean Platelet Volume 9.8 fl (7.4-10.4); Platelet Count 199 10x3/uL (150-450); RBC Distribution Width 14.5 % (11.5-14.5); Red Blood Cell (RBC) Count 4.14 10x6/uL (3.90-5.03); White Blood Cell (WBC) Count 5.7 10x3/uL (3.5-10.5)
[2022-11-06 15:25] LABS: ALT (SGPT) 23 U/L (8-55); AST (SGOT) 18 U/L (5-34); Albumin 3.8 g/dL (3.5-5.0); Alkaline Phosphatase 72 U/L (40-110); Anion Gap 19 mmol/L (10-20); BUN (Urea Nitrogen) 35 mg/dL (7.0-18.7); Bilirubin, Total 0.5 mg/dL (0.2-1.2); Calc. Creatinine Clearance 0 mL/min (70-130); Calcium 9.4 mg/dL (7.8-10.44); Carbon Dioxide 26 mmol/L (22-29); Chloride 98 mmol/L (98-107); Estimated GFR 8; Globulin 2.7 g/dL (2.4-3.5); Glucose 81 mg/dL (70-105); Potassium 5.4 mmol/L (3.5-5.1); Protein, Total 6.5 g/dL (6.0-8.3); Sodium 138 mmol/L (136-145)
[2022-11-06] MEDS ORDERED: cefTRIAXone\\ROCEPHIN 2 GM VIAL ONE (16:32)
[2022-11-06] MEDS ORDERED: Ipratropium Bromide 2.5 ml Neb ONE (17:40)
[2022-11-06] MEDS ORDERED: Azithromycin 500 MG VIAL ONE (17:44)
[2022-11-06] MEDS ORDERED: Ondansetron PF 4 MG/2 ML Vial ONE (18:47)
== END 2022-11-06 19:17 | disposition home or self-care (01) ==
LOC: CSHERS 14:16
DX: J18.9 Pneumonia, unspecified organism (principal); E87.70 Fluid overload, unspecified; I12.0 Hypertensive chronic kidney disease with stage 5 chronic kidney disease or end stage renal disease; N18.6 End stage renal disease; K21.9 Gastro-esophageal reflux disease without esophagitis; Z87.891 Personal history of nicotine dependence
CPT/HCPCS: 36415; 71045; 80053; 83605; 83880; 84145; 84484; 85025; 87040; 93005; 94640; 94760; 96365; 96375; J0456; J0696; J2405